=== PATIENT | male | born 1980 | race Caucasian/White ===

== ENCOUNTER 2017-12-27 11:54 | Emergency (ER) | payer SELFPAY ==
[2017-12-27] MEDS ORDERED: TETANUS & DIPHTHERIA TOX,ADULT 0.5 ML VIAL ONE (12:32)
[2017-12-27] MEDS ORDERED: LIDOCAINE 1% MPF 5 ML VIAL ONE (12:32)
--- NOTE | 2017-12-27 13:56 | RAD REPORT ---
EXAM DESCRIPTION: RAD -Hand Left 3 View - 12/27/2017 1:23 pm CLINICAL HISTORY: Left hand pain status post injury FINDINGS: No fracture or dislocation is seen. A radiopaque foreign body is not seen
--- NOTE | 2017-12-27 15:14 | EDPHYS ---
Physician Documentation [facility] Name: George Morales Age: 37 yrs Sex: Male : 1980 Arrival Date: 12/27/2017 Time: 11:59 Bed 16 Private MD: None, None ED Physician Micheal Cristobal HPI: 12/27 13:00 This 37 yrs old Male presents to ER via Ambulatory with complaints of Finger pm1 Laceration. 13:00 The patient or guardian reports a laceration. pm1 13:00 The complaints affect the lateral aspect of distal phalanx of left index finger. pm1 Context: The problem was sustained at home, resulted from cut with knife. Onset: The symptoms/episode began/occurred just prior to arrival. Modifying factors: The symptoms are alleviated by pressure to area, the symptoms are aggravated by nothing. Associated signs and symptoms: Pertinent positives: numbness distally, Pertinent negatives: cyanosis distally, decreased sensation distally. Severity of symptoms: in the emergency department the symptoms are unchanged. The patient has not experienced similar symptoms in the past. The patient has not recently seen a physician. Patient was cutting with a knife and got distracted, resulting in laceration to left index finger. Historical: - Allergies: 12:07 No Known Allergies; aj - Home Meds: 12:07 None [Active]; aj - PMHx: 12:07 None; aj - PSHx: 12:07 Left Leg; Neck; Back; aj - Immunization history:: Last tetanus immunization: < 10 years ago. - Social history:: Smoking status: Patient uses tobacco products. - Ebola Screening: : Patient negative for fever greater than or equal to 101.5 degrees Fahrenheit, and additional compatible Ebola Virus Disease symptoms Patient denies exposure to infectious person Patient denies travel to an Ebola-affected area in the 21 days before illness onset No symptoms or risks identified at this time. ROS: 13:00 Constitutional: Negative for fever, chills, and weight loss, Eyes: Negative for injury, pm1 pain, redness, and discharge, ENT: Negative for injury, pain, and discharge, Neck: Negative for injury, pain, and swelling, Cardiovascular: Negative for chest pain, palpitations, and edema, Respiratory: Negative for shortness of breath, cough, wheezing, and pleuritic chest pain, Abdomen/GI: Negative for abdominal pain, nausea, vomiting, diarrhea, and constipation, Back: Negative for injury and pain. 13:00 Neuro: Negative for headache, weakness, numbness, tingling, and seizure. 13:00 MS/extremity: Positive for laceration, of the lateral aspect of distal phalanx of left index finger, Negative for decreased range of motion, deformity. 13:00 Skin: Positive for laceration(s), of the lateral aspect of distal phalanx of left index finger. Exam: 13:00 Constitutional: This is a well developed, well nourished patient who is awake, alert, pm1 and in no acute distress. Head/Face: Normocephalic, atraumatic. Chest/axilla: Normal chest wall appearance and motion. Nontender with no deformity. No lesions are appreciated. Cardiovascular: Regular rate and rhythm with a normal S1 and S2. No gallops, murmurs, or rubs. Normal PMI, no JVD. No pulse deficits. Respiratory: Lungs have equal breath sounds bilaterally, clear to auscultation and percussion. No rales, rhonchi or wheezes noted. No increased work of breathing, no retractions or nasal flaring. Abdomen/GI: Soft, non-tender, with normal bowel sounds. No distension or tympany. No guarding or rebound. No evidence of tenderness throughout. Back: No spinal tenderness. No costovertebral tenderness. Full range of motion. 13:00 MS/ Extremity: Pulses equal, no cyanosis. Neurovascular intact. Full, normal range of motion. 13:00 Skin: Appearance: normal except for affected area, injury, laceration(s), the wound is approximately 1.5 cm(s), with a depth of 0.5 cm(s), of the lateral aspect of distal phalanx of left index finger. 13:00 Neuro: Orientation: is normal, Motor: is normal, moves all fours, Gait: is steady, at a normal pace, without difficulty. Vital Signs: 12:07 BP 141 / 93; Pulse 76; Resp 18; Temp 97.8; Pulse Ox 97% on R/A; Weight 111.58 kg; aj Height 6 ft. 2 in. (187.96 cm); 14:35 BP 138 / 88; Pulse 62; Resp 15; Pulse Ox 99% on R/A; Pain 08/28; ch 12:07 Body Mass Index 31.58 (111.58 kg, 187.96 cm) aj Laceration: 15:00 Wound Repair of 1.5cm ( 0.6in ) subcutaneous laceration to lateral aspect of distal pm1 phalanx of left index finger. Irregularly shaped.. Distal neuro/vascular/tendon intact. Anesthesia: Digital block administered with 3 mls of 1% lidocaine. Wound prep: Extensive cleansing with hibiclenz by me, Wound irrigation with saline by me, Wound explored extensively, Copious irrigation. Skin closed with 5 5-0 Prolene using simple sutures and sterile technique. Dressed with Neosporin, 4x4's. Patient tolerated well. MDM: 12:10 Patient medically screened. pm1 15:11 Data reviewed: vital signs. Data interpreted: Pulse oximetry: on room air is 99 %. pm1 Interpretation: normal. Counseling: I had a detailed discussion with the patient and/or guardian regarding: the historical points, exam findings, and any diagnostic results supporting the discharge/admit diagnosis, radiology results, the need for outpatient follow up, to return to the emergency department if symptoms worsen or persist or if there are any questions or concerns that arise at home. 12/27 12:16 Order name: Hand Left 3 View XRAY; Complete Time: 14:00 pm1 12/27 12:16 Order name: Prolene, Sutures; Complete Time: 12:34 pm1 12/27 12:16 Order name: Gloves, Sterile; Complete Time: 12:34 pm1 12/27 12:16 Order name: Setup Suture Tray; Complete Time: 12:34 pm1 Administered Medications: 12:34 Drug: Tetanus-Diphtheria Toxoid Adult 0.5 ml {Production Analyst: [employer]. Exp: 01/08/2020. Lot #: [id number]. } Route: IM; Site: left deltoid; 14:36 Follow up: Response: No adverse reaction 12:34 Drug: Lidocaine (1 %) 5 ml Volume: 5 ml; Route: Infiltration; Disposition: 16:17 Co-signature as Attending Physician, Micheal Cristobal MD. rn Disposition: 12/27/17 15:13 Discharged to Home. Impression: Laceration without foreign body of left index finger without damage to nail. - Condition is Stable. - Discharge Instructions: Laceration Care, Adult, [id number]. - Prescriptions for Keflex 500 mg Oral Capsule - take 1 capsule by ORAL route every 12 hours for 10 days; 20 capsule. Tramadol 50 mg Oral Tablet - take 1 tablet by ORAL route every 8 hours as needed; 12 tablet. - Medication Reconciliation Form, Thank You Letter, Antibiotic Education, Prescription Opioid Use form. - Follow up: Emergency Department; When: As needed; Reason: Worsening of condition. Follow up: Ryan Meier MD; When: 10 - 14 days; Reason: Recheck today's complaints, Continuance of care, Staple/Suture removal, Re-evaluation by your physician. Follow up: Private Physician; When: 10 - 14 days; Reason: Recheck today's complaints, Continuance of care, Staple/Suture removal, Re-evaluation by your physician. - Problem is new. - Symptoms have improved. Signatures: Dispatcher [employer] EDMS Fay Osborne RN RN ch Myers, Amanda, RN RN aj Nieto, Roman, MD MD rn Marinas, Patrick, NATURAL GAS FIELD PROCESSING SUPERVISOR NATURAL GAS FIELD PROCESSING SUPERVISOR pm1 Corrections: (The following items were deleted from the chart) 15:24 15:13 12/27/2017 15:13 Discharged to Home. Impression: Laceration without foreign body ch of left index finger without damage to nail. Condition is Stable. Forms are Medication Reconciliation Form, Thank You Letter, Antibiotic Education, Prescription Opioid Use. Follow up: Emergency Department; When: As needed; Reason: Worsening of condition. Follow up: Ryan Meier; When: 10 - 14 days; Reason: Recheck today's complaints, Continuance of care, Staple/Suture removal, Re-evaluation by your physician. Follow up: Private Physician; When: 10 - 14 days; Reason: Recheck today's complaints, Continuance of care, Staple/Suture removal, Re-evaluation by your physician. Problem is new. Symptoms have improved. pm1
--- NOTE | 2017-12-27 15:14 | ER ---
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 aj Transition of care: patient was not received from another setting of care. Onset of symptoms was December 27, 2017. Risk Assessment: Do you want to hurt yourself or someone else? Patient reports no desire to harm self or others. Initial Sepsis Screen: Does the patient meet any 2 criteria? No. Patient's initial sepsis screen is negative. Does the patient have a suspected source of infection? No. Patient's initial sepsis screen is negative. Care prior to arrival: None. 12:06 Method Of Arrival: Ambulatory aj 12:06 Acuity: MARGARITA 4 aj Triage Assessment: 12:07 General: Appears in no apparent distress. comfortable, Behavior is calm, cooperative, aj appropriate for age. Pain: Complains of pain in dorsal aspect of distal phalanx of left index finger and left index fingernail. Neuro: Level of Consciousness is awake, alert, obeys commands, Oriented to person, place, time, situation, Appropriate for age. Respiratory: Airway is patent Respiratory effort is even, unlabored, Respiratory pattern is regular, symmetrical. Derm: Skin is intact, is healthy with good turgor, Skin is pink, warm \T\ dry. normal. Injury Description: Laceration sustained to dorsal aspect of distal phalanx of left index finger is clean, 2.6 to 7.5 cm long, was sustained less than 30 minutes ago. Historical: - Allergies: 12:07 No Known Allergies; aj - Home Meds: 12:07 None [Active]; aj - PMHx: 12:07 None; aj - PSHx: 12:07 Left Leg; Neck; Back; aj - Immunization history:: Last tetanus immunization: < 10 years ago. - Social history:: Smoking status: Patient uses tobacco products. - Ebola Screening: : Patient negative for fever greater than or equal to 101.5 degrees Fahrenheit, and additional compatible Ebola Virus Disease symptoms Patient denies exposure to infectious person Patient denies travel to an Ebola-affected area in the 21 days before illness onset No symptoms or risks identified at this time. Screenin:23 Abuse screen: Denies threats or abuse. Denies injuries from another. Nutritional ch screening: No deficits noted. Tuberculosis screening: No symptoms or risk factors identified. Fall Risk None identified. Assessment: 12:23 General: Appears in no apparent distress. comfortable, Behavior is calm, cooperative, ch appropriate for age. Pain: Complains of pain in dorsal aspect of distal phalanx of left index finger Pain currently is 8 out of 10 on a pain scale. Pain began suddenly. Neuro: No deficits noted. Respiratory: No deficits noted. Derm: Skin is pink, warm \T\ dry. 12:23 Musculoskeletal: No signs and/or symptoms reported regarding the musculoskeletal ch system. Injury Description: Laceration sustained to left hand is clean, 0.5 to 2.5 cm long, not bleeding, no active bleeding noted at this time. 13:45 Reassessment: Patient appears in no apparent distress at this time. Patient and/or family updated on plan of care and expected duration. Pain level reassessed. Patient is alert, oriented x 3, equal unlabored respirations, skin warm/dry/pink. Patient states feeling better. Patient states symptoms have improved. 13:50 Reassessment: Patient appears in no apparent distress at this time. ch 14:35 Reassessment: Patient appears in no apparent distress at this time. No changes from previously documented assessment. Patient and/or family updated on plan of care and expected duration. Pain level reassessed. Patient is alert, oriented x 3, equal unlabored respirations, skin warm/dry/pink. awaiting provider to suture pt. no s/s of distress. pt verb understanding. Vital Signs: 12:07 BP 141 / 93; Pulse 76; Resp 18; Temp 97.8; Pulse Ox 97% on R/A; Weight 111.58 kg; aj Height 6 ft. 2 in. (187.96 cm); 14:35 BP 138 / 88; Pulse 62; Resp 15; Pulse Ox 99% on R/A; Pain 4/10; ch 12:07 Body Mass Index 31.58 (111.58 kg, 187.96 cm) ED Course: 11:59 Patient arrived in ED. mr 11:59 None, None is Private Physician. mr 12:07 Triage completed. aj 12:07 Arm band placed on left wrist. Patient placed in an exam room. aj 12:09 Leandro Davis NP is PHCP. pm1 12:09 Micheal Cristobal MD is Attending Physician. pm1 12:23 Fay Osborne, JAYANT is Primary Nurse. ch 12:23 No apparent distress. Resting quietly. ch 12:23 Patient has correct armband on for positive identification. Bed in low position. Call light in reach. 13:24 Hand Left 3 View XRAY In Process Unspecified. EDMS 14:30 Assist provider with laceration repair on dorsal aspect of distal phalanx of left index ch finger that was between 2.6 to 7.5 cm using sutures. Set up tray. Performed by Leandro Davis NP Dressed with band aid, Patient tolerated well. 14:30 Patient did not have IV access during this emergency room visit. 15:12 Ryan Meier MD is Referral Physician. pm1 Administered Medications: 12:34 Drug: Tetanus-Diphtheria Toxoid Adult 0.5 ml {Cheese Tester: [id number]. Exp: 01/08/2020. Lot #: [id number]. } Route: IM; Site: left deltoid; 14:36 Follow up: Response: No adverse reaction 12:34 Drug: Lidocaine (1 %) 5 ml Volume: 5 ml; Route: Infiltration; Outcome: 15:13 Discharge ordered by MD. pm1 15:24 Patient left the ED. 15:35 Discharged to home ambulatory, with family. 15:35 Condition: improved 15:35 Discharge instructions given to patient, family, Instructed on discharge instructions, follow up and referral plans. medication usage, wound care, Demonstrated understanding of instructions, follow-up care, medications, wound care, Prescriptions given X 2. Signatures: Dispatcher [employer] EDSC Fay Osborne RN RN ch Myers, Amanda, RN RN aj Rivera, Maria mr SusanLeandro NP [employer]ENOGR[employer]HER [employer] pm1
== END 2017-12-27 15:24 | disposition home or self-care (01) ==
LOC: ER 11:54
PROC: 0JQK0ZZ Repair Left Hand Subcutaneous Tissue and Fascia, Open Approach (ICD-10-PCS; principal; 2017-12-27)
DX: S61.211A Laceration without foreign body of left index finger without damage to nail, initial encounter (principal); W26.0XXA Contact with knife, initial encounter; Y93.9 Activity, unspecified; Y92.009 Unspecified place in unspecified non-institutional (private) residence as the place of occurrence of the external cause; Z72.0 Tobacco use
CPT/HCPCS: 90714; 99284

== ENCOUNTER 2019-08-01 16:49 | Emergency (ER) | payer SELFPAY ==
[2019-08-01] MEDS ORDERED: IPRATROPIUM BROM 0.5MG/2.5ML ONE (17:16)
[2019-08-01] MEDS ORDERED: ALBUTEROL 2.5 MG/3 ML NEB SOL ONE (17:16)
--- NOTE | 2019-08-01 17:39 | RAD REPORT ---
EXAM DESCRIPTION: Artur Meza And Maximiliano (2 Views)08/01/2019 5:25 pm CLINICAL HISTORY: Cough COMPARISON: None FINDINGS: The lungs appear clear of acute infiltrate. The heart is normal size IMPRESSION: No acute abnormalities displayed
--- NOTE | 2019-08-01 17:43 | EDPHYS ---
Physician Documentation [facility] Name: George Morales Age: 39 yrs Sex: Male : 1980 Arrival Date: 08/01/2019 Time: 16:52 Bed 28 Private MD: ED Physician Heraclio Raymundo HPI: 07/31 17:06 This 39 yrs old Male presents to ER via Ambulatory with complaints of Flu la1 Symptoms. 17:06 The patient or guardian reports cough, that is intermittent, described as moderate. la1 Onset: The symptoms/episode began/occurred 3 week(s) ago. Severity of symptoms: At their worst the symptoms were mild. Modifying factors: The symptoms are alleviated by nothing, the symptoms are aggravated by nothing. Associated signs and symptoms: Pertinent negatives: fever. The patient has not experienced similar symptoms in the past. Historical: - Allergies: 17:04 No Known Allergies; aj1 - Home Meds: 17:04 None [Active]; aj1 - PMHx: 17:04 None; aj1 - Immunization history:: Flu vaccine is not up to date. - Social history:: Smoking status: Patient/guardian denies using tobacco. ROS: 17:07 Constitutional: Negative for fever, chills, and weight loss, Eyes: Negative for injury, la1 pain, redness, and discharge, ENT: Negative for injury, pain, and discharge, Cardiovascular: Negative for chest pain, palpitations, and edema. 17:07 Abdomen/GI: Negative for abdominal pain, nausea, vomiting, diarrhea, and constipation, Back: Negative for injury and pain, MS/Extremity: Negative for injury and deformity, Skin: Negative for injury, rash, and discoloration, Neuro: Negative for headache, weakness, numbness, tingling, and seizure. 17:07 Respiratory: Positive for cough. Exam: 17:07 Constitutional: This is a well developed, well nourished patient who is awake, alert, la1 and in no acute distress. Eyes: Pupils equal round and reactive to light, extra-ocular motions intact. ENT: Mucous membranes moist. Neck: Trachea midline,Supple, full range of motion without nuchal rigidity, or vertebral point tenderness. No Meningismus. Chest/axilla: Normal chest wall appearance and motion. Nontender with no deformity. No lesions are appreciated. Cardiovascular: Regular rate and rhythm with a normal S1 and S2. 17:07 Back: No spinal tenderness. No costovertebral tenderness. Full range of motion. 17:07 Respiratory: the patient does not display signs of respiratory distress, Respirations: normal, Breath sounds: bronchial sounds, that are mild, are scattered. Vital Signs: 17:01 BP 141 / 94; Pulse 81; Resp 18; Temp 98.1; Pulse Ox 98% on R/A; Weight 104.33 kg (R); aj1 Height 6 ft. 2 in. (187.96 cm); 17:01 Body Mass Index 29.53 (104.33 kg, 187.96 cm) aj1 MDM: 17:06 Patient medically screened. la1 17:43 Data reviewed: vital signs, nurses notes, lab test result(s), radiologic studies, and la1 as a result, I will discharge patient. Data interpreted: Pulse oximetry: on room air is 98 %. Interpretation: normal. Counseling: I had a detailed discussion with the patient and/or guardian regarding: the historical points, exam findings, and any diagnostic results supporting the discharge/admit diagnosis, radiology results, the need for outpatient follow up, a family practitioner, to return to the emergency department if symptoms worsen or persist or if there are any questions or concerns that arise at home. Special discussion: Based on the patient's history, exam, and Dx evaluation, there is no indication for emergent intervention or inpatient Tx. It is understood by the patient/guardian that if the Sx's persist or worsen they need to return immediately for re-evaluation. 07/31 17:04 Order name: Chest Pa And Lat (2 Views) XRAY; Complete Time: 17:42 la1 Administered Medications: 17:38 Drug: Albuterol - atroVENT (3:1) (2.5 mg - 0.5 mg) 3 ml Route: Nebulizer; aj1 Disposition: 19:43 Co-signature as Attending Physician, Heraclio Raymundo MD I agree with the assessment and kdr plan of care. Disposition: 08/01/19 17:42 Discharged to Home. Impression: Acute bronchitis. - Condition is Stable. - Discharge Instructions: Acute Bronchitis, Adult. - Prescriptions for Tessalon Perles 100 mg Oral Capsule - take 1 capsule by ORAL route every 8 hours As needed; 15 capsule. Medrol (Ronaldo) 4 mg Oral Tablets, Dose Pack - take 1 tablet by ORAL route as directed - follow package instructions; 1 packet. Albuterol Sulfate 90 mcg/actuation - inhale 1-2 puff by INHALATION route every 4-6 hours; 1 Inhaler. - Medication Reconciliation Form, Thank You Letter form. - Follow up: Private Physician; When: 2 - 3 days; Reason: Recheck today's complaints, Continuance of care, Re-evaluation by your physician. - Problem is new. - Symptoms have improved. Signatures: Dispatcher [employer] EDElsa Monae, RN RN aj1 Candace Nj RN RN dm5 Heraclio Raymundo MD MD kdr Austyn Mendoza, FUNERAL DIRECTOR/EMBALMER/OWNER-C FUNERAL DIRECTOR/EMBALMER/OWNER-Cla1 Corrections: (The following items were deleted from the chart) 18:27 17:42 08/01/2019 17:42 Discharged to Home. Impression: Acute bronchitis. Condition is dm5 Stable. Forms are Medication Reconciliation Form, Thank You Letter, Antibiotic Education, Prescription Opioid Use. Follow up: Private Physician; When: 2 - 3 days; Reason: Recheck today's complaints, Continuance of care, Re-evaluation by your physician. Problem is new. Symptoms have improved. la1
--- NOTE | 2019-08-01 17:43 | ER ---
Nurse's Notes [facility] Name: George Morales Age: 39 yrs Sex: Male : 1980 Arrival Date: 08/01/2019 Time: 16:52 Bed 28 Private MD: Diagnosis: Acute bronchitis Presentation: 07/31 17:01 Chief complaint: Patient states: Cough and congestion for the past 3 weeks. Denies aj1 fever. Coronavirus screen: The patient has NOT traveled to a country currently being monitored by the CDC within the last 14 days. Ebola Screen: Patient denies travel to an Ebola-affected area in the 21 days before illness onset. 17:01 Method Of Arrival: Ambulatory aj1 17:01 Initial Sepsis Screen: Does the patient meet any 2 criteria? No. Patient's initial aj1 sepsis screen is negative. Does the patient have a suspected source of infection? Yes: Productive cough/pneumonia. Risk Assessment: Do you want to hurt yourself or someone else? Patient reports no desire to harm self or others. 17:01 Acuity: MARGARITA 4 aj1 Triage Assessment: 17:04 General: Appears in no apparent distress. comfortable, Behavior is calm, cooperative, aj1 appropriate for age. Pain: Denies pain. Historical: - Allergies: 17:04 No Known Allergies; aj1 - Home Meds: 17:04 None [Active]; aj1 - PMHx: 17:04 None; aj1 - Immunization history:: Flu vaccine is not up to date. - Social history:: Smoking status: Patient/guardian denies using tobacco. Vital Signs: 17:01 BP 141 / 94; Pulse 81; Resp 18; Temp 98.1; Pulse Ox 98% on R/A; Weight 104.33 kg (R); aj1 Height 6 ft. 2 in. (187.96 cm); 17:01 Body Mass Index 29.53 (104.33 kg, 187.96 cm) aj1 ED Course: 16:52 Patient arrived in ED. mr 16:57 Austyn Mendoza FNP-C [facility]. la1 16:57 Heraclio Raymundo MD is Attending Physician. la1 17:01 Elsa Mast RN is Primary Nurse. aj1 17:03 Triage completed. aj1 17:04 Arm band placed on. aj1 17:25 Chest Pa And Lat (2 Views) XRAY In Process Unspecified. EDMS Administered Medications: 17:38 Drug: Albuterol - atroVENT (3:1) (2.5 mg - 0.5 mg) 3 ml Route: Nebulizer; aj1 Outcome: 17:42 Discharge ordered by . la1 18:27 Patient left the ED. dm5 Signatures: Dispatcher [employer] EDMS Elsa Mast RN RN aj1 Candace Nj RN RN dm5 Ana Herron mr Reji, Austyn, VENTILATION MECHANIC-C VENTILATION MECHANIC-Cla1
[2019-08-01 18:33] VITALS: BP 141/94; TEMP 98.1; O2SAT 98
== END 2019-08-01 18:27 | disposition home or self-care (01) ==
LOC: ER 16:49
DX: J20.9 Acute bronchitis, unspecified (principal)
CPT/HCPCS: 71046; 94640; 99284

== ENCOUNTER 2021-01-04 10:22 | Emergency (ER) | payer SELFPAY ==
[2021-01-04] MEDS ORDERED: LIDOCAINE 1% 20 ML MDV ONE (13:14)
[2021-01-04] MEDS ORDERED: HYDROCODONE/APAP 10/325 TAB ONE (13:14)
--- NOTE | 2021-01-04 13:17 | EDPHYS ---
Physician Documentation [facility] Name: George Morales Jr Age: 40 yrs Sex: Male : 1980 Arrival Date: 01/04/2021 Time: 10:30 Bed Treatment Private MD: ED Physician Charlotte Arriaza HPI: 01/04 13:13 This 40 yrs old Male presents to ER via Ambulatory with complaints of Abscess.jr8 13:13 The patient presents with an abscess of the right leg. Description: The affected area jr8 is moderate sized, localized, draining, erythematous, swollen, tense. Onset: The symptoms/episode began/occurred gradually. Possible cause(s): unknown. Associated signs and symptoms: The patient has no apparent associated signs or symptoms. Modifying factors: the symptoms are alleviated by nothing, the symptoms are aggravated by walking, pressure, squeezing the lesion and expressing the contents, touching. Severity of symptoms: At their worst the symptoms were moderate, in the emergency department the symptoms are unchanged. The patient has not experienced similar symptoms in the past. The patient has not recently seen a physician. Historical: - Allergies: 11:14 No Known Allergies; jl7 - Home Meds: 11:14 None [Active]; jl7 - PMHx: 11:14 None; jl7 - Immunization history:: Client reports receiving the 1st dose of the Covid vaccine. - Social history:: Smoking status: Patient denies any tobacco usage or history of. ROS: 13:13 Eyes: Negative for injury, pain, redness, and discharge, ENT: Negative for injury, jr8 pain, and discharge, Neck: Negative for injury, pain, and swelling, Cardiovascular: Negative for chest pain, palpitations, and edema, Respiratory: Negative for shortness of breath, cough, wheezing, and pleuritic chest pain, Abdomen/GI: Negative for abdominal pain, nausea, vomiting, diarrhea, and constipation, Back: Negative for injury and pain, MS/Extremity: Negative for injury and deformity, Neuro: Negative for headache, weakness, numbness, tingling, and seizure. 13:13 Skin: Positive for abscess, of the right leg. Exam: 13:13 Constitutional: This is a well developed, well nourished patient who is awake, alert, jr8 and in no acute distress. Cardiovascular: Regular rate and rhythm with a normal S1 and S2. No gallops, murmurs, or rubs. Normal PMI, no JVD. No pulse deficits. Respiratory: Lungs have equal breath sounds bilaterally, clear to auscultation and percussion. No rales, rhonchi or wheezes noted. No increased work of breathing, no retractions or nasal flaring. MS/ Extremity: Pulses equal, no cyanosis. Neurovascular intact. Full, normal range of motion. Neuro: Awake and alert, GCS 15, oriented to person, place, time, and situation. Cranial nerves II-XII grossly intact. Motor strength 5/5 in all extremities. Sensory grossly intact. Cerebellar exam normal. Normal gait. 13:13 Skin: Has approximately 2.5 cm abscess with surrounding induration erythema noted. Abscess is actively draining at this time.. Vital Signs: 11:12 BP 147 / 85; Pulse 76; Resp 17; Temp 98.2; Pulse Ox 100% ; Weight 102.06 kg; Height 6 jl7 ft. 2 in. (187.96 cm); Pain 10/10; 11:12 Body Mass Index 28.89 (102.06 kg, 187.96 cm) jl7 Procedures: 13:13 I \T\ D: Incision and drainage was performed for an abscess of the right Lateral calf jr8 Prepped with Betadine, Anesthetized with 10 ml's 1% Lidocaine. Incised with #11 blade. Drained moderate amount purulent fluid. bloody fluid. Loculations removed. Abscess cavity explored. Packed with iodoform gauze, the patient tolerated the procedure well. MDM: 11:43 Patient medically screened. [facility] 13:13 Data reviewed: vital signs, nurses notes, and as a result, I will discharge patient. jr8 Data interpreted: Pulse oximetry: on room air is 100 %. Interpretation: normal. Counseling: I had a detailed discussion with the patient and/or guardian regarding: the historical points, exam findings, and any diagnostic results supporting the discharge/admit diagnosis, lab results, the need for outpatient follow up, a family practitioner, to return to the emergency department if symptoms worsen or persist or if there are any questions or concerns that arise at home. ED course: We will put patient on and if it were to get worse in between now and then to come back for reevaluation. Patient good with this plan at this time.. 01/04 12:40 Order name: I\T\D Setup; Complete Time: 13:37 jr8 Administered Medications: 12:55 Drug: Lidocaine (1 %) 1 vials Volume: 20 ml; Route: Infiltration; iw 13:01 Drug: [place] (HYDROcodone-acetaminophen) 10 mg-325 mg 1 tabs Route: PO; iw Disposition: 18:56 Co-signature as Attending Physician, Charlotte Arriaza I agree with the assessment and plan sp3 of care. Disposition Summary: 01/04/21 13:16 Discharge Ordered Location: Home jr8 Problem: new jr8 Symptoms: have improved jr8 Condition: Stable jr8 Diagnosis - Cutaneous abscess of right lower limb jr8 Followup: jr8 - With: Private Physician - When: 48 Hours - Reason: Wound Recheck, Recheck today's complaints, Continuance of care, Re-evaluation by your physician Discharge Instructions: - Discharge Summary Sheet jr8 - Skin Abscess jr8 - Incision and Drainage jr8 Forms: - Medication Reconciliation Form jr8 - Thank You Letter jr8 - Antibiotic Education jr8 - Prescription Opioid Use jr8 Prescriptions: - Tramadol 50 mg Oral Tablet - take 1 tablet by ORAL route every 8 hours as needed; 12 tablet; Refills: 0, jr8 Product Selection Permitted - Bactrim DS 800-160 mg Oral Tablet - take 1 tablet by ORAL route every 12 hours for 10 days; 20 tablet; Refills: 0, jr8 Product Selection Permitted Signatures: Aliya Vera RN RN iw Roszak, Josh, PA PA jr8 Chris Johnson RN RN jl7 Charlotte Arriaza sp3
--- NOTE | 2021-01-04 13:17 | ER ---
Nurse's Notes [facility] Name: George Morales Jr Age: 40 yrs Sex: Male : 1980 Arrival Date: 01/04/2021 Time: 10:30 Bed Treatment Private MD: Diagnosis: Cutaneous abscess of right lower limb Presentation: 01/04 11:12 Chief complaint: Patient states: Spider bite to right calf 4 days ago, started taking jl7 amoxicillin, went to [facility] and they gave me a prescription but I didn't get it filled since I'm already taking amoxicillin. Coronavirus screen: Client denies travel out of the [place] in the last 14 days. At this time, the client does not indicate any symptoms associated with coronavirus-19. Ebola Screen: No symptoms or risks identified at this time. Initial Sepsis Screen: Does the patient meet any 2 criteria? No. Patient's initial sepsis screen is negative. Does the patient have a suspected source of infection? No. Patient's initial sepsis screen is negative. Risk Assessment: Do you want to hurt yourself or someone else? Patient reports no desire to harm self or others. Onset of symptoms was December 31, 2020. 11:12 Method Of Arrival: Ambulatory [facility] 11:12 Acuity: MARGARITA 4 jl7 Historical: - Allergies: 11:14 No Known Allergies; jl7 - Home Meds: 11:14 None [Active]; jl7 - PMHx: 11:14 None; jl7 - Immunization history:: Client reports receiving the 1st dose of the Covid vaccine. - Social history:: Smoking status: Patient denies any tobacco usage or history of. Assessment: 11:41 Reassessment: SERA Perez assessing pt. [facility] Vital Signs: 11:12 BP 147 / 85; Pulse 76; Resp 17; Temp 98.2; Pulse Ox 100% ; Weight 102.06 kg; Height 6 jl7 ft. 2 in. (187.96 cm); Pain 10; 11:12 Body Mass Index 28.89 (102.06 kg, 187.96 cm) jl7 ED Course: 10:30 Patient arrived in ED. mr 11:14 Triage completed. jl7 11:14 Arm band placed on right wrist. jl7 11:40 Chris Garsia PA is PHCP. jl7 11:44 Johnson, Jahala, RN is Primary Nurse. jl7 13:13 Charlotte Arriaza is Attending Physician. jr8 Administered Medications: 12:55 Drug: Lidocaine (1 %) 1 vials Volume: 20 ml; Route: Infiltration; iw 13:01 Drug: Ennice (HYDROcodone-acetaminophen) 10 mg-325 mg 1 tabs Route: PO; iw Outcome: 13:16 Discharge ordered by . gwyn 13:38 Patient left the ED. iw Signatures: Ana Herron Irene, RN RN iw Chris Garsia PA PA jr8 Chris Johnson, JAYANT RN jl7
[2021-01-04 13:41] VITALS: BP 147/85; TEMP 98.2; O2SAT 100
== END 2021-01-04 13:38 | disposition home or self-care (01) ==
LOC: ER 10:22
PROC: 0J9N0ZZ Drainage of Right Lower Leg Subcutaneous Tissue and Fascia, Open Approach (ICD-10-PCS; principal; 2021-01-04)
DX: L02.415 Cutaneous abscess of right lower limb (principal)
CPT/HCPCS: 99282

== ENCOUNTER 2021-01-06 07:54 | Emergency (ER) | payer SELFPAY ==
--- OUTSIDE RECORDS SUMMARY | 2021-01-06 07:56 | XMS REPORT | Continuity of Care Document ---
:1980 Author Organization [facility] t Address [address] [place] [address] Care Team Providers Name Role Phone Darrin Hillman Attending Clinician Doctor Unassigned, Name Attending Clinician Unavailable Singer KASPER Attending Clinician Problems This patient has no known problems. Allergies, Adverse Reactions, Alerts This patient has no known allergies or adverse reactions. Medications This patient has no known medications. Procedures This patient has no known procedures. Encounters Start End Encounter Admission Attending Care Care Encounter Source Date/Time Date/Time Type Type Clinicians Facility Department ID 2020-12-30 2020-12-30 Emergency Elizabeth [facility] [id number] 21:37:00 23:13:00 Lillie Goyal [id number] [place] [id number] [place] [address] [id number] 2020-12-30 2020-12-30 Orders Doctor COOPER [id number] 00:00:00 00:00:00 Only Unassigned, LATANYA [id number] [place] [facility] [id number] 2020-04-21 2020-04-21 Emergency Singer [place] [id number] 10:24:00 11:44:00 Tyree Goyal [id number] [place] [id number] [place] [address] [id number] Results This patient has no known results.
--- NOTE | 2021-01-06 09:16 | ER ---
Nurse's Notes [facility] Name: George Morales Jr Age: 40 yrs Sex: Male : 1980 Arrival Date: 01/06/2021 Time: 07:57 Bed Waiting Private MD: Diagnosis: Right Lower Leg Abscess with surrounding cellulitis Presentation: 01/06 08:52 Chief complaint: Patient states: Packing Removal. Coronavirus screen: Client denies da3 travel out of the [place] in the last 14 days. At this time, the client does not indicate any symptoms associated with coronavirus-19. 08:52 Method Of Arrival: Ambulatory da3 08:57 Risk Assessment: Do you want to hurt yourself or someone else? Patient reports no da3 desire to harm self or others. 08:57 Acuity: MARGARITA 4 da3 Triage Assessment: 08:57 General: Appears in no apparent distress. uncomfortable. da3 Historical: - Allergies: 08:54 No Known Allergies; da3 - PMHx: 08:54 None; da3 - Immunization history:: Client reports receiving the 1st dose of the Covid vaccine. Vital Signs: 08:53 BP 144 / 82; Pulse 78; Resp 18; da3 08:53 Temp 97.0; Pulse Ox 97% on R/A; da3 ED Course: 07:57 Patient arrived in ED. ds1 08:57 Triage completed. da3 09:07 [facility] 09:07 Micheal Cristobal MD is Attending Physician. [facility] 09:14 Godfrey Darby MD is Referral Physician. [facility] Administered Medications: No medications were administered Outcome: 09:15 Discharge ordered by . [facility] 09:32 Patient left the ED. da3 Signatures: Clint Hernandez PA PA jmm Sanford, Demi ds1 Esteban Palmer, RN RN da3
--- NOTE | 2021-01-06 09:16 | EDPHYS ---
Physician Documentation [facility] Name: George Morales Jr Age: 40 yrs Sex: Male : 1980 Arrival Date: 01/06/2021 Time: 07:57 Bed Waiting Private MD: ED Physician Micheal Cristobal HPI: 01/06 09:09 This 40 yrs old Male presents to ER via Ambulatory with complaints of Packing jmm Removal. 09:09 Patient presents to ED for recheck of: abscess. The affected area is on the lateral jmm aspect of right calf. The patient has not experienced similar symptoms in the past. 80-year-old male with no chronic medical conditions and presents emerge department with complaints of swelling to the right lower limb. Patient had an incision and drainage 2 days ago. Patient denies that the symptoms have been worsening. Patient has been taking prescribed medication as directed. Denies fever.. Historical: - Allergies: 08:54 No Known Allergies; da3 - PMHx: 08:54 None; da3 - Immunization history:: Client reports receiving the 1st dose of the Covid vaccine. ROS: 09:09 Constitutional: Negative for fever, chills, and weight loss, Cardiovascular: Negative jmm for chest pain, palpitations, and edema, Respiratory: Negative for shortness of breath, cough, wheezing, and pleuritic chest pain. 09:09 Skin: Positive for erythema, swelling. 09:09 All other systems are negative. Exam: 09:09 Constitutional: This is a well developed, well nourished patient who is awake, alert, jmm and in no acute distress. Head/Face: atraumatic. Eyes: EOMI, no conjunctival erythema appreciated ENT: Moist Mucus Membranes Neck: Trachea midline, Supple Chest/axilla: Normal chest wall appearance and motion. Cardiovascular: Regular rate and rhythm. No edema appreciated Respiratory: Normal respirations, no respiratory distress appreciated Abdomen/GI: Non distended, soft Back: Normal ROM 09:09 Skin: abscess with surrounding erythema noted to the right lower leg. 09:09 Neuro: Orientation: is normal, Mentation: is normal, Memory: is normal. 09:09 Psych: Behavior/mood is pleasant, cooperative. Vital Signs: 08:53 BP 144 / 82; Pulse 78; Resp 18; da3 08:53 Temp 97.0; Pulse Ox 97% on R/A; da3 Procedures: 09:09 Packing from the right lower leg removed. Gauze packing was then inserted with Coban [facility] wrapping.. MDM: 09:09 Data reviewed: vital signs, nurses notes. Counseling: I had a detailed discussion with [facility] the patient and/or guardian regarding: the historical points, exam findings, and any diagnostic results supporting the discharge/admit diagnosis, the need for outpatient follow up, to return to the emergency department if symptoms worsen or persist or if there are any questions or concerns that arise at home. ED course: Patient is alert nontoxic in appearance in the ED. Patient afebrile upon triage. I will added an additional antibiotic. Patient given follow-up information for surgery/wound care. Patient otherwise advised to return to the ED if he notices any worsening change in his wound.. 09:15 Patient medically screened. [facility] Administered Medications: No medications were administered Disposition: 14:35 Co-signature as Attending Physician, Micheal Cristobal MD I agree with the assessment and rn plan of care. Attestation: The patient's history, exam findings, diagnostics, and a summary of any interventions or procedures was reviewed in detail with Clint ZAMORA. Disposition Summary: 01/06/21 09:15 Discharge Ordered Location: Home [facility] Condition: Stable [facility] Diagnosis - Right Lower Leg Abscess with surrounding cellulitis [facility] Followup: [facility] - With: Godfrey aDrby MD - When: 2 - 3 days - Reason: Recheck today's complaints, Continuance of care, Re-evaluation by your physician Discharge Instructions: - Discharge Summary Sheet [facility] - Skin Abscess [facility] - Incision and Drainage, Care After [facility] Forms: - Medication Reconciliation Form [facility] - Thank You Letter [facility] - Antibiotic Education [facility] - Prescription Opioid Use [facility] Prescriptions: - Doxycycline Hyclate 100 mg Oral Tablet - take 1 tablet by ORAL route every 12 hours; 20 tablet; Refills: 0, Product [facility] Selection Permitted Signatures: Clint Hernandez PA PA [facility] Micheal Cristobal MD MD rn Allan, David, RN RN da3
[2021-01-06 09:36] VITALS: BP 144/82; TEMP 97; O2SAT 97
== END 2021-01-06 09:32 | disposition home or self-care (01) ==
LOC: ER 07:54
DX: L03.115 Cellulitis of right lower limb (principal)
CPT/HCPCS: 99281

== ENCOUNTER 2021-11-13 17:47 | Emergency (ER) | payer SELFPAY ==
--- OUTSIDE RECORDS SUMMARY | 2021-11-13 17:50 | XMS REPORT | Continuity of Care Document ---
:1980 Author Organization [facility] t Address [address] [place] [address] Care Team Providers Name Role Phone PCP, DOES NOT HAVE A Primary Care Physician Unavailable Only, Adult Uc Test Attending Clinician Unavailable Sonia Rueda Attending Clinician Darrin Hillman Attending Clinician Doctor Unassigned, Name Attending Clinician Unavailable Singer KASPER Attending Clinician Problems Condition Condition Condition Status Onset Resolution Last Treating Co mments Source Name Details Category Date Date Treatment Clinician Date No known No known Disease Unive rs active active ity of problems problems [facility] Allergies, Adverse Reactions, Alerts Allergy Allergy Status Severity Reaction(s) Onset Inactive Treating Comm ents Source Name Type Date Date Clinician NO KNOWN Drug Active Univers ALLERGIE Class ity of S [facility] Social History Social Habit Start Date Stop Date Quantity Comments Source Sex Assigned At [birth year] [facility] 00:00:00 00:00:00 [facility] Smoking Status Start Date Stop Date Source Unknown if ever smoked [facility] Medications Ordered Filled Start Stop Current Ordering Indication Dosage Frequency Signature Comments Components Source Medication Medication Date Date Medication? Clinician (SIG) Name Name mupirocin 2 Yes [id number] Apply to Univers % ointment -12 area(s) 3 ity of 00:00: (three) [place] 00 times Medical daily. Branch multivitami 2019-05 Yes [id number] 1{capsu Take 1 Univers n capsule 2-02 le} capsule by ity of 00:00: mouth [place] 00 daily. Medical Branch calcium-mag 2019-05 Yes [id number] Take as Univers nesium-zinc 2-02 directed ity of [id number] 00:00: for daily [place] mg Tab 00 dose. [facility] Branch benzonatate 2019-05 Yes [id number] 100mg Take 1 Univers 100 mg 2-02 capsule by ity of capsule 00:00: mouth 3 [place] 00 (three) Medical times Branch daily as needed for Cough. chlorphenir 2019-05 Yes [id number] 4mg Take 1 Univers amine 4 mg 2-02 tablet by ity of tablet 00:00: mouth [place] 00 every 6 Medical (six) Branch hours as needed for Allergies or Runny nose. Procedures This patient has no known procedures. Encounters Start End Encounter Admission Attending Care Care Encounter Source Date/Time Date/Time Type Type Clinicians Facility Department ID 2021-05-20 2021-05-20 Laboratory Only, [facility] Adult Uc Test [facility] [id number] Univers 14:45:00 15:00:00 Only Davina Neri PROSPER [id number] ity of PEDIATRIC [id number] [facility] [id number] [address] 2021-05-20 2021-05-20 Outpatient [facility] [id number] Univers 13:45:00 13:45:00 [id number] ity of [facility] 2020-12-30 2020-12-30 Emergency [facility] [id number] 21:37:00 23:13:00 Lillie Goyal [id number] [place] [id number] [place] [id number] 2020-12-30 2020-12-30 Orders Doctor COOPER [id number] 00:00:00 00:00:00 Only LATANYA [place] [id number] [place] [facility] [id number] 2020-04-21 2020-04-21 Emergency [facility] [id number] 10:24:00 11:44:00 Tyree Goyal [id number] [place] [id number] [place] [id number] Results This patient has no known results.
--- NOTE | 2021-11-13 20:50 | RAD REPORT ---
EXAM DESCRIPTION: RAD - Foot Left 3 View - 11/13/2021 8:36 pm CLINICAL HISTORY: big toe injury COMPARISON: No comparisons FINDINGS: No fracture, dislocation or periosteal reaction. No acute or destructive bony process. In jury to the toenail of the first toe is evident. No air or foreign body in the soft tissues. IMPRESSION: No acute left foot bone or joint abnormality.
[2021-11-13] MEDS ORDERED: BUPIVACAINE 0.25% PF 10 ML VIAL ONE (21:14)
[2021-11-13] MEDS ORDERED: HYDROCODONE/APAP 7.5/325 MG TAB ONE (21:14)
[2021-11-13] MEDS ORDERED: LIDOCAINE 1% 20 ML MDV ONE (21:14)
--- NOTE | 2021-11-13 22:22 | ER ---
Nurse's Notes [facility] Name: George Morales Jr Age: 41 yrs Sex: Male : 1980 Arrival Date: 11/13/2021 Time: 17:50 Bed 28 Private MD: Diagnosis: Contusion of great toe with damage to nail-right great toe Historical: - Allergies: 11/13 22:51 No Known Allergies; bb - Immunization history:: Adult Immunizations unknown. - Social history:: Smoking status: unknown. Screenin:45 Abuse screen: Denies threats or abuse. Nutritional screening: No deficits noted. bb Tuberculosis screening: No symptoms or risk factors identified. Fall Risk None identified. Assessment: 20:45 General: Appears in no apparent distress. uncomfortable, Behavior is calm, cooperative. bb Pain: Complains of pain in right foot. Neuro: Level of Consciousness is awake, alert, obeys commands, Oriented to person, place, time, situation. Musculoskeletal: toe nail to right big toe lifted up and dislocated. 22:52 Reassessment: Patient is alert, oriented x 3, equal unlabored respirations, skin bb warm/dry/pink. bandage applied to right big toe pt verbalized understanding of and agrees to plan of care discharge instructions given pt ambulated with steady gait to exit accompanied by family. Vital Signs: 20:11 BP 150 / 74; Pulse 51; Resp 18; Temp 98.3; Pulse Ox 100% ; Weight 97.52 kg; Height 6 zm ft. 2 in. (187.96 cm); 22:55 BP 132 / 70; Pulse 66; Resp 16 S; Temp 99.2(O); Pulse Ox 97% on R/A; bb 20:11 Body Mass Index 27.60 (97.52 kg, 187.96 cm) ED Course: 17:50 Patient arrived in ED. bp1 19:35 Dwight Owens PA is PHCP. cp 19:35 Artemio Berman MD is Attending Physician. cp 19:52 Lakia Duron, JAYANT is Primary Nurse. bb 20:13 Patient has correct armband on for positive identification. Bed in low position. Call light in reach. Side rails up X 1. Adult w/ patient. Pulse ox on. NIBP on. 20:37 XRAY Foot LEFT 3 View In Process Unspecified. EDMS 22:20 Raffaele Ernandez DPM is Referral Physician. cp 22:53 Dressings: 4X4s X 1; right foot covered with coban. bb 22:55 No provider procedures requiring assistance completed. Patient did not have IV access bb during this emergency room visit. Administered Medications: 21:11 Drug: Hydrocodone-Acetaminophen (7.5 mg-325 mg) 1 tabs Route: PO; bb 22:53 Follow up: Response: No adverse reaction bb 22:25 Drug: Marcaine (bupivacaine) (0.5 %) 10 ml {Note: by Dwight ZAMORA to affected area.} bb Volume: 10 ml; Route: Infiltration; 22:54 Follow up: Response: No adverse reaction bb 22:25 Drug: Lidocaine (1 %) 10 ml {Note: by Dwight ZAMORA to affected area.} Volume: 20 ml; bb Route: Infiltration; :54 Follow up: Response: No adverse reaction bb Outcome: 22:22 Discharge ordered by MD. cp 22:55 Discharged to home ambulatory, with family. bb 22:55 Condition: stable 22:55 Discharge instructions given to patient, Instructed on discharge instructions, the need for admit, no driving heavy equipment, medication usage, wound care, Demonstrated understanding of instructions, follow-up care, medications, wound care, Prescriptions given X 3. 22:56 Patient left the ED. bb Signatures: Dispatcher [employer] EDMS Lakia Duron, JAYANT RN Dwight Corrigan PA PA cp [place], Brittany bp1 Martinez, Zaina zm
--- NOTE | 2021-11-13 22:23 | EDPHYS ---
Physician Documentation [facility] Name: George Morales Jr Age: 41 yrs Sex: Male : 1980 Arrival Date: 11/13/2021 Time: 17:50 Bed 28 Private MD: ED Physician Artemio Berman HPI: 11/13 20:15 This 41 yrs old Male presents to ER via Unassigned with complaints of Toe Injury. cp 20:15 The patient presents with an injury, pain, that is acute. The complaints affect the cp left great toe. 20:15 Context: Patient reports he was taking out trash and struck left great toe against cp trash can. Onset: The symptoms/episode began/occurred just prior to arrival. Associated signs and symptoms: The patient has no apparent associated signs or symptoms. Historical: - Allergies: 22:51 No Known Allergies; bb - Immunization history:: Adult Immunizations unknown. - Social history:: Smoking status: unknown. ROS: 20:20 MS/extremity: Positive for injury or acute deformity, pain, of the left great toe. cp 20:20 Constitutional: Negative for body aches, chills, fever. cp 20:20 Neck: Negative for pain with movement, pain at rest. 20:20 Cardiovascular: Negative for chest pain, palpitations. 20:20 Respiratory: Negative for cough, shortness of breath, wheezing. 20:20 Back: Negative for pain at rest, pain with movement. 20:20 Neuro: Negative for altered mental status, headache, weakness. 20:20 All other systems are negative. Exam: 20:25 Constitutional: The patient appears in no acute distress, alert, awake, non-toxic, well cp developed, well nourished, uncomfortable. 20:25 Head/Face: Normocephalic, atraumatic. cp 20:25 Neck: ROM/movement: is normal, is supple, without pain, no range of motions limitations. 20:25 Chest/axilla: Inspection: normal. 20:25 Cardiovascular: Rate: bradycardic. 20:25 Respiratory: the patient does not display signs of respiratory distress, Respirations: normal, no use of accessory muscles, no retractions, labored breathing, is not present. 20:25 Abdomen/GI: Inspection: abdomen appears normal. 20:25 Back: pain, is absent, ROM is normal. 20:25 Musculoskeletal/extremity: Extremities: grossly normal except: noted in the left great toe: pain, ROM: full active range of motion, in the left great toe, Perfusion: the extremity is normally perfused throughout, the left great toe Sensation intact. Nails: partial avulsion, left great toe. Vital Signs: 20:11 BP 150 / 74; Pulse 51; Resp 18; Temp 98.3; Pulse Ox 100% ; Weight 97.52 kg; Height 6 zm ft. 2 in. (187.96 cm); 22:55 BP 132 / 70; Pulse 66; Resp 16 S; Temp 99.2(O); Pulse Ox 97% on R/A; bb 20:11 Body Mass Index 27.60 (97.52 kg, 187.96 cm) zm MDM: 19:58 Patient medically screened. cp 21:00 Differential diagnosis: fracture, sprain, laceration. cp 22:22 Data reviewed: vital signs, nurses notes, radiologic studies, plain films. cp 22:22 Test interpretation: by ED physician or midlevel provider: plain radiologic studies. cp Counseling: I had a detailed discussion with the patient and/or guardian regarding: the historical points, exam findings, and any diagnostic results supporting the discharge/admit diagnosis, radiology results. Response to treatment: the patient's symptoms have markedly improved after treatment, and as a result, I will discharge patient. 22:22 ED course: Pain improved with meds. Xrays of left foot negative for fracture. Nail cp removed and replaced with figure eight stitch. Will discharge to home and recommend f/u with podiatry. 11/13 20:11 Order name: XRAY Foot LEFT 3 View; Complete Time: 21:08 cp 11/13 21:08 Interpretation: Reviewed report. cp 11/13 20:11 Order name: Dressing - Wound; Complete Time: 22:54 cp 11/13 20:11 Order name: Gloves, Sterile; Complete Time: 21:11 cp 11/13 20:11 Order name: Setup Suture Tray; Complete Time: 21:11 cp 11/13 22:16 Order name: Wound dressing; Complete Time: 22:53 cp Administered Medications: 21:11 Drug: Hydrocodone-Acetaminophen (7.5 mg-325 mg) 1 tabs Route: PO; bb 22:53 Follow up: Response: No adverse reaction bb 22:25 Drug: Marcaine (bupivacaine) (0.5 %) 10 ml {Note: by Dwight ZAMORA to affected area.} bb Volume: 10 ml; Route: Infiltration; 22:54 Follow up: Response: No adverse reaction bb 22:25 Drug: Lidocaine (1 %) 10 ml {Note: by Dwight ZAMORA to affected area.} Volume: 20 ml; bb Route: Infiltration; 22:54 Follow up: Response: No adverse reaction bb Disposition Summary: 11/13/21 22:22 Discharge Ordered Location: Home cp Problem: new cp Symptoms: have improved cp Condition: Stable cp Diagnosis - Contusion of great toe with damage to nail - right great toe cp Followup: cp - With: Raffaele Ernandez DPM - When: 2 - 3 days - Reason: Wound Recheck Discharge Instructions: - Discharge Summary Sheet cp - Nail Avulsion cp Forms: - Medication Reconciliation Form cp - Thank You Letter cp - Antibiotic Education cp - Prescription Opioid Use cp Prescriptions: - Cephalexin 500 mg Oral Capsule - take 1 capsule by ORAL route every 8 hours for 10 days; 30 capsule; Refills: 0, cp Product Selection Permitted - Ibuprofen 800 mg Oral Tablet - take 1 tablet by ORAL route every 8 hours As needed take with food; 30 tablet; cp Refills: 0, Product Selection Permitted - Tramadol 50 mg Oral Tablet - take 1 tablet by ORAL route every 8 hours as needed; 12 tablet; Refills: 0, cp Product Selection Permitted Signatures: Dispatcher [employer] Lakia Perales RN RN bb Page, Corey, PA PA cp Corrections: (The following items were deleted from the chart) 11/14 22:43 22:42 MS/extremity: Positive for injury or acute deformity, pain, of the left great cp toe, cp
[2021-11-13 23:04] VITALS: BP 132/70; TEMP 99.2; O2SAT 97
== END 2021-11-13 22:56 | disposition home or self-care (01) ==
LOC: ER 17:47
DX: S90.212A Contusion of left great toe with damage to nail, initial encounter (principal); W22.8XXA Striking against or struck by other objects, initial encounter
CPT/HCPCS: 99284

== ENCOUNTER 2022-08-03 19:42 | Emergency (ER) | payer SELFPAY ==
--- OUTSIDE RECORDS SUMMARY | 2022-08-03 19:46 | XMS REPORT | Continuity of Care Document ---
:1980 Author Organization [facility] t Address [address] [facility] [address] [place] [address] Care Team Providers Name Role Phone PCP, PATIENT DOES NOT HAVE A Primary Care Physician Unavaila ble Only, Gal Adult Uc Test Attending Clinician Unavailable Jennifer Rueda Attending Clinician JENNIFER NERI Attending Clinician Unavailable Doctor Unassigned, [place] Attending Clinician Unavailable Obed Hillman Attending Clinician OBED PATEL Attending Clinician Unavailable Tyree Lopez DO Attending Clinician TYREE LOPEZ Attending Clinician Unavailable Problems Condition Condition Condition Status Onset Resolution Last Treating Co mments Source Name Details Category Date Date Treatment Clinician Date No known No known Disease Unive rs active active ity of problems problems [facility] Allergies, Adverse Reactions, Alerts Allergy Allergy Status Severity Reaction(s) Onset Inactive Treating Comm ents Source Name Type Date Date Clinician NO KNOWN Drug Active Univers ALLERGIE Class ity of S [facility] Social History Social Habit Start Date Stop Date Quantity Comments Source Sex Assigned At [birth year] [facility] 00:00:00 00:00:00 [facility] Smoking Status Start Date Stop Date Source Unknown if ever smoked [facility] Medications Ordered Filled Start Stop Current Ordering Indication Dosage Frequency Signature Comments Components Source Medication Medication Date Date Medication? Clinician (SIG) Name Name mupirocin 2 2020- Yes [id number] Apply to Univers % ointment 8-12 area(s) 3 ity of 00:00: (three) [place] 00 times Medical daily. Branch benzonatate 2019-05 Yes [id number] 100mg Take 1 Univers 100 mg 2-02 capsule by ity of capsule 00:00: mouth 3 [place] 00 (three) Medical times Branch daily as needed for Cough. chlorphenir 2019-05 Yes [id number] 4mg Take 1 Univers amine 4 mg 2-02 tablet by ity of tablet 00:00: mouth [place] 00 every 6 Medical (six) Branch hours as needed for Allergies or Runny nose. multivitami 2019-05 Yes [id number] 1{capsu Take 1 Univers n capsule 2-02 le} capsule by ity of 00:00: mouth [place] 00 daily. Medical Branch calcium-mag 2019-05 Yes [id number] Take as Univers nesium-zinc 2-02 directed ity of 333-133-8.3 00:00: for daily [place] mg Tab 00 dose. Medical Branch Procedures This patient has no known procedures. Encounters Start End Encounter Admission Attending Care Care Encounter Source Date/Time Date/Time Type Type Clinicians Facility Department ID 2021-05-20 2021-05-20 Laboratory Only, Gal Adult Uc Test [facility] [id number] [id number] Univers 14:45:00 15:00:00 Only Jennifer Neri [facility] [id number] ity of PEDIATRIC [id number] [facility] [id number] [facility] 370 Branch 2021-05-20 2021-05-20 Outpatient R VINNIE [facility] [id number] Univers 14:45:00 14:45:00 [facility] ity of [facility] 2021-05-20 2021-05-20 Orders Doctor COOPER [id number] Univers 00:00:00 00:00:00 Only Unassigned, LATANYA [id number] ity of [place] [facility] [id number] Parag as [id number] [facility] 009 Branch 2020-12-30 2020-12-30 Emergency [facility] [id number] 21:37:00 23:13:00 Obed Goyal [id number] [place] [id number] [place] [id number] 2020-12-30 2020-12-30 Emergency [facility] [id number] Univers 21:37:00 23:13:00 Obed Goyal [id number] i ty of [place] [id number] [facility] [id number] [address] 2020-12-30 2020-12-30 Emergency [facility] [id number] Univers 21:37:00 21:37:00 OBED dias [facility] 2020-12-30 2020-12-30 Orders Doctor COOPER [id number] 00:00:00 00:00:00 Only Unassigned, LATANYA [id number] [place] [facility] [id number] [id number] 2020-12-30 2020-12-30 Orders Doctor COOPER [id number] Univers 00:00:00 00:00:00 Only Unassigned, LATANYA [id number] ity of [place] [facility] [id number] [place] [id number] [address] 2020-04-21 2020-04-21 Emergency [facility] [id number] 10:24:00 11:44:00 Tyree Goyal [id number] [place] [id number] [place] [id number] [facility] 2020-04-21 2020-04-21 [facility] [id number] Univers 10:24:00 11:44:00 Tyree Goyal [id number] i ty of [place] [id number] [facility] [id number] [address] 2020-04-21 2020-04-21 Emergency [facility] ERT [id number] Univers 10:24:00 10:24:00 TYREE dias [facility] Results This patient has no known results.
--- NOTE | 2022-08-03 20:29 | EDPHYS ---
Physician Documentation [facility] Name: George Morales Jr Age: 42 yrs Sex: Male : 1980 Arrival Date: 08/03/2022 Time: 19:46 Bed 19 Private MD: ED Physician Adalid Metcalf Historical: - Allergies: 08/03 20:12 No Known Allergies; ll3 - Home Meds: 20:12 Lortab 10 Oral daily [Active]; ll3 - PMHx: 20:12 None; ll3 - PSHx: 20:12 None; ll3 - Immunization history:: Client reports receiving the 2nd dose of the Covid vaccine. - Social history:: Smoking status: Patient denies any tobacco usage or history of. Vital Signs: 20:09 BP 152 / 93; Pulse 73; Resp 17; Temp 99.3(O); Pulse Ox 99% on R/A; Weight 92.99 kg (R); ll3 Height 6 ft. 2 in. (R); Pain 5/10; 20:09 Body Mass Index 26.32 (92.99 kg, 187.96 cm) ll3 20:09 Pain Scale: Adult ll3 MDM: 20:05 Patient medically screened. snw Administered Medications: No medications were administered Disposition Summary: 08/03/22 20:29 Discharge Ordered Location: Home snw Condition: Stable snw Diagnosis - Dental caries, unspecified snw - Sub-mandibular lymphadenopathy snw Followup: snw - With: Emergency Department - When: As needed - Reason: Worsening of condition Followup: snw - With: Private Physician - When: Tomorrow - Reason: Recheck today's complaints, Continuance of care, Re-evaluation by your physician Forms: - Medication Reconciliation Form snw - Thank You Letter snw - Antibiotic Education snw - Prescription Opioid Use snw Signatures: Shelly Paulino FNP-C TRAY P[employer]ER-Csnw Janice Mendes RN RN ll3
--- NOTE | 2022-08-03 20:29 | ER ---
Nurse's Notes [facility] Name: George Morales Jr Age: 42 yrs Sex: Male : 1980 Arrival Date: 08/03/2022 Time: 19:46 Bed 19 Private MD: Diagnosis: Dental caries, unspecified;Sub-mandibular lymphadenopathy Presentation: 08/03 20:09 Chief complaint: Patient states: States "My throat started swelling up yesterday and ll3 now I'm having trouble eating", swelling noted to right bottom jaw area, c/o throat pain /10. Coronavirus screen: Vaccine status: Patient reports receiving the 2nd dose of the covid vaccine. At this time, the client does not indicate any symptoms associated with coronavirus-19. Ebola Screen: No symptoms or risks identified at this time. Initial Sepsis Screen: Does the patient meet any 2 criteria? No. Patient's initial sepsis screen is negative. Does the patient have a suspected source of infection? No. Patient's initial sepsis screen is negative. Risk Assessment: Do you want to hurt yourself or someone else? Patient reports no desire to harm self or others. Onset of symptoms was August 02, 2022. 20:09 Method Of Arrival: Ambulatory ll3 20:09 Acuity: MARGARITA 3 ll3 Historical: - Allergies: 20:12 No Known Allergies; ll3 - Home Meds: 20:12 Lortab 10 Oral daily [Active]; ll3 - PMHx: 20:12 None; ll3 - PSHx: 20:12 None; ll3 - Immunization history:: Client reports receiving the 2nd dose of the Covid vaccine. - Social history:: Smoking status: Patient denies any tobacco usage or history of. Screenin:27 [facility] ED Fall Risk Assessment (Adult) History of falling in the last 3 months, pf1 including since admission No falls in past 3 months (0 pts) Confusion or Disorientation No (0 pts) Intoxicated or Sedated No (0 pts) Impaired Gait No (0 pts) Mobility Assist Device Used No (0 pt) Altered Elimination No (0 pt) Score/Fall Risk Level 0 - 2 = Low Risk Oriented to surroundings, Maintained a safe environment, Educated pt \\T\\ family on fall prevention, incl call for assistance when getting out of bed, Assessed \\T\\ reinforced patient's understanding of fall precautions, Provided non-skid footwear, Hourly rounding (assess needs \\T\\ fall precautionary measures) done, Used ambulatory aids as needed (educated on \\T\\ assisted with). Abuse screen: Denies threats or abuse. Nutritional screening: No deficits noted. Tuberculosis screening: No symptoms or risk factors identified. Assessment: 20:15 General: Appears in no apparent distress. uncomfortable, well groomed, well developed, pf1 Behavior is calm, cooperative, appropriate for age, quiet. 20:15 Pain: Complains of pain in sore throat pain 5 with swelling,onset 2 days. Patient pf1 stated had fever on Sunday, but now has resolved. Patient stated took Ibuprofen 800mg at 1600. Pain currently is 5 out of 10 on a pain scale. Neuro: Level of Consciousness is awake, alert, obeys commands, Oriented to person, place, time, situation. Cardiovascular: No deficits noted. Capillary refill < 3 seconds Patient's skin is warm and dry. Respiratory: No deficits noted. Reports Airway is patent Trachea midline Respiratory effort is even, unlabored, Respiratory pattern is regular, symmetrical. GI: No deficits noted. No signs and/or symptoms were reported involving the gastrointestinal system. : No deficits noted. No signs and/or symptoms were reported regarding the genitourinary system. EENT: Throat is reddened bilaterally with swelling. Derm: No deficits noted. No signs and/or symptoms reported regarding the dermatologic system. Musculoskeletal: No deficits noted. No signs and/or symptoms reported regarding the musculoskeletal system. Vital Signs: 20:09 BP 152 / 93; Pulse 73; Resp 17; Temp 99.3(O); Pulse Ox 99% on R/A; Weight 92.99 kg (R); ll3 Height 6 ft. 2 in. (R); Pain 5/10; 20:09 Body Mass Index 26.32 (92.99 kg, 187.96 cm) ll3 20:09 Pain Scale: Adult ll3 ED Course: 19:46 Patient arrived in ED. mr 19:51 Shelly Paulino FNP-C [facility] snw 19:51 Adalid Metcalf MD is Attending Physician. snw 20:08 Pepper mensah RN is Primary Nurse. pf1 20:12 Triage completed. ll3 20:12 Arm band placed on Patient placed in an exam room, on a stretcher, on pulse oximetry. ll3 Administered Medications: No medications were administered Outcome: 20:29 Discharge ordered by MD. sol Signatures: Shelly Paulino, MELEC MERCHANDISE ADJUSTMENT CLERK-Csnw Ana Herron mr Mendes, Janice, RN RN ll3 Pepper mensah RN RN pf1
[2022-08-03] MEDS ORDERED: HYDROCODONE/APAP 10/325 TAB ONE (20:35)
[2022-08-03 22:50] VITALS: BP 142/88; TEMP 98.9; O2SAT 94
== END 2022-08-03 20:58 | disposition home or self-care (01) ==
LOC: ER 19:42
DX: K02.9 Dental caries, unspecified (principal); R59.0 Localized enlarged lymph nodes
CPT/HCPCS: 99283

== ENCOUNTER 2022-08-06 09:00 | Emergency (ER) | payer SELFPAY ==
--- OUTSIDE RECORDS SUMMARY | 2022-08-06 09:03 | XMS REPORT | Continuity of Care Document ---
:1980 Author Organization [facility] t Address [address] [facility] [address] [place] [address] Care Team Providers Name Role Phone PCP, PATIENT DOES NOT HAVE A Primary Care Physician Unavaila ble Only, Gal Adult Uc Test Attending Clinician Unavailable Jennifer Rueda Attending Clinician JENNIFER NERI Attending Clinician Unavailable Doctor Unassigned, [place] Attending Clinician Unavailable Obed Hillman Attending Clinician OBED PATEL Attending Clinician Unavailable Tyree Lopez DO Attending Clinician TYREE LOPEZ Attending Clinician Unavailable Problems Condition Condition Condition Status Onset Resolution Last Treating Co mments Source Name Details Category Date Date Treatment Clinician Date No known No known Disease Unive rs active active ity of problems problems [facility] Allergies, Adverse Reactions, Alerts Allergy Allergy Status Severity Reaction(s) Onset Inactive Treating Comm ents Source Name Type Date Date Clinician NO KNOWN Drug Active Univers ALLERGIE Class ity of S [facility] Social History Social Habit Start Date Stop Date Quantity Comments Source Sex Assigned At [birth year] [facility] 00:00:00 00:00:00 [facility] Smoking Status Start Date Stop Date Source Unknown if ever smoked [facility] Medications Ordered Filled Start Stop Current Ordering Indication Dosage Frequency Signature Comments Components Source Medication Medication Date Date Medication? Clinician (SIG) Name Name mupirocin 2 2020- Yes [id number] Apply to Univers % ointment 8-12 area(s) 3 ity of 00:00: (three) [place] 00 times Medical daily. Branch benzonatate 2019-05 Yes [id number] 100mg Take 1 Univers 100 mg 2-02 capsule by ity of capsule 00:00: mouth 3 [place] 00 (three) Medical times Branch daily as needed for Cough. chlorphenir 2019-05 Yes [id number] 4mg Take 1 Univers amine 4 mg 2-02 tablet by ity of tablet 00:00: mouth [place] 00 every 6 Medical (six) Branch hours as needed for Allergies or Runny nose. multivitami 2019-05 Yes [id number] 1{capsu Take 1 Univers n capsule 2-02 le} capsule by ity of 00:00: mouth [place] 00 daily. Medical Branch calcium-mag 2019-05 Yes [id number] Take as Univers nesium-zinc 2-02 directed ity of 333-133-8.3 00:00: for daily [place] mg Tab 00 dose. Medical Branch Procedures This patient has no known procedures. Encounters Start End Encounter Admission Attending Care Care Encounter Source Date/Time Date/Time Type Type Clinicians Facility Department ID 2021-05-20 2021-05-20 Laboratory Only, Gal Adult Uc Test [facility] 1.2.840.114 [id number] Univers 14:45:00 15:00:00 Only Jennifer Neri [facility] [id number] ity of PEDIATRIC [id number] [facility] [id number] [facility] 370 Branch 2021-05-20 2021-05-20 Outpatient R VINNIE [facility] [id number] Univers 14:45:00 14:45:00 [facility] ity of [facility] 2021-05-20 2021-05-20 Orders Doctor COOPER 1.2.840.114 [id number] Univers 00:00:00 00:00:00 Only Unassigned, LATANYA [id number] ity of [place] [facility] [id number] [place] as [id number] [facility] 009 Branch 2020-12-30 2020-12-30 Emergency [facility] [id number] 21:37:00 23:13:00 Obed Goyal [id number] [place] [id number] [place] [id number] 2020-12-30 2020-12-30 Emergency [facility] [id number] Univers 21:37:00 23:13:00 Obed Goyal [id number] i ty of [place] [id number] [facility] [id number] [address] 2020-12-30 2020-12-30 [facility] [id number] Univers 21:37:00 21:37:00 OBED dias [facility] 2020-12-30 2020-12-30 Orders Doctor COOPER 1.2.840.114 [id number] 00:00:00 00:00:00 Only Unassigned, LATANYA [id number] [place] [facility] [id number] [id number] 2020-12-30 2020-12-30 Orders Doctor COOPER [id number] [id number] Univers 00:00:00 00:00:00 Only Unassigned, LATANYA [id number] ity of [place] [facility] [id number] [place] [id number] [address] 2020-04-21 2020-04-21 Emergency [facility] [id number] 10:24:00 11:44:00 Tyree Goyal [id number] [place] [id number] [place] [id number] [facility] 2020-04-21 2020-04-21 [facility] [id number] Univers 10:24:00 11:44:00 Tyree Goyal [id number] i ty of [place] [id number] [facility] [id number] [address] 2020-04-21 2020-04-21 [facility] [id number] Univers 10:24:00 10:24:00 TYREE dias [facility] Results This patient has no known results.
[2022-08-06 09:35] LABS: Absolute Lymphocytes (CBC) 0.9 K/uL (0.7-4.9); Hematocrit 43.9 % (39.6-49.0); Lymphocytes % 8.3 % (15.3-44.8); MCV 87.6 fL (80-100); MPV 7.4 fL (7.6-11.3); RBC Red Blood Cell Count 5.01 M/uL (4.33-5.43)
[2022-08-06 09:47] LABS: Potassium 4.2 mEq/L (3.5-5.1)
[2022-08-06] MEDS ORDERED: KETOROLAC 30 MG/ML INJ ONE (09:54)
[2022-08-06] MEDS ORDERED: NA CHLORIDE 0.9% 1,000 ML ONE (09:54)
--- NOTE | 2022-08-06 10:26 | RAD REPORT ---
EXAM DESCRIPTION: CT - Soft Tissue Neck W/Contr CLINICAL HISTORY: Swelling;Pain COMPARISON: No comparisons TECHNIQUE: Axial thin cut CT images of the neck were performed following intravenous administration of 95 mL Isovue-300. Multiplanar reformats were generated and reviewed. All CT scans are performed using dose optimization technique as appropriate and may include automated exposure control or mA/KV adjustment according to patient size. FINDINGS: Lobulated periapical abscess is seen along the roots of the right mandibular second and th ird molars. Small buccal cortex defect is present, best appreciated on coronal image 37/150 series 20 2. Soft tissue swelling along the deep muscles of the tongue, and the right side of the neck, with platy smal thickening. A lobulated subperiosteal collection, somewhat ill-defined, is present along the buc dara cortex of the right mandible body, measuring 2.7 x 1.0 x 1.0 centimeter in greatest dimensions. C omponent of the collection extends along the inferior margin of the mandibular body. Slight midline s hift of the soft tissues of the deep muscles of the tongue. Partial effacement of the right paraphary ngeal fat plane. Mild edema extends into the right solution director space and right submandibular triangle. Partial effacement of the nasopharyngeal and oropharyngeal airway on the right, with slight effaceme nt of the right vallecula. Fossa of Rosenmuller are unremarkable. Epiglottis and aryepiglottic folds are normal. Piriform sinuses are well aerated. The vocal cords are normal in appearance. Other salivary glands are normal in appearance. Mildly prominent lymph nodes on the right at levels 1B, 2, and 3. These are likely reactive. Polypoidal mucosal thickening along the left ostiomeatal unit and middle meatus. Small mucous retenti on cysts in the maxillary sinuses bilaterally. Upper lung gasca are clear. Included intracranial contents are unremarkable. IMPRESSION: Lobulated periapical abscess at the roots of the right mandibular second and third molar s. Small buccal cortex defect with an adjacent 2.7 centimeter subperiosteal abscess, with contiguous edematous changes of the deep muscles of the tongue, extending along the solution director and parapharyngea l spaces on the right, with partial effacement of the nasopharyngeal and oropharyngeal airways on the right. The findings were communicated to Evelina Guzman on 08/06/2022 at 10:20 hours.
--- NOTE | 2022-08-06 10:38 | EDPHYS ---
Physician Documentation [facility] Name: George Morales Jr Age: 42 yrs Sex: Male : 1980 Arrival Date: 08/06/2022 Time: 09:00 Bed 6 Private MD: ED Physician Heraclio Raymundo Historical: - Allergies: 08/06 09:13 No Known Allergies; kr3 - PMHx: 09:13 None; kr3 - PSHx: 09:13 None; kr3 - Immunization history:: Adult Immunizations not up to date. - Social history:: Smoking status: Patient/guardian denies using tobacco, the patient reports quitting approximately 6.5 years ago. Vital Signs: 09:05 BP 140 / 90; Pulse 95; Resp 18; Temp 98.8; Pulse Ox 96% on R/A; Weight 92.99 kg; Height kr3 6 ft. 2 in. ; Pain 6/10; 10:25 BP 148 / 83; Pulse 77; Resp 16; Pulse Ox 100% on R/A; hb 09:05 Body Mass Index 26.32 (92.99 kg, 187.96 cm) kr3 09:05 Pain Scale: Adult kr3 MDM: 09:06 Patient medically screened. kb 10:20 Discussion of test interpretation with radiology: I had a discussion with radiology diony regarding a test interpretation. CT results discussed with Dr Carpenter. 08/06 09:10 Order name: IV Start; Complete Time: 09:30 kb 08/06 09:10 Order name: CBC with Diff; Complete Time: 09:41 kb 08/06 09:10 Order name: Basic Metabolic Panel; Complete Time: 09:47 kb 08/06 09:10 Order name: CT Soft Tissue Neck W/contr; Complete Time: 10:27 kb Administered Medications: 09:56 Drug: Ketorolac IVP 15 mg Route: IVP; Site: right antecubital; ss 09:56 Drug: NS 0.9% IV 1000 ml Route: IV; Rate: 1000 ml; Site: right antecubital; ss Disposition Summary: 08/06/22 10:38 Transfer Ordered Accepting Physician: Dr vora Transfer Location: [facility] kb Reason: Higher level of care kb Condition: Stable kb Problem: new kb Symptoms: are unchanged kb Diagnosis - Ludwigs Angina kb Forms: - Medication Reconciliation Form kb - SBAR form kb Signatures: Dispatcher [employer] EDEvelina Starr, WAGE ANALYST-C PATRICIA-Lucina Quiros RN RN ss Lisa Rosas RN RN kr3 Corrections: (The following items were deleted from the chart) 09:30 09:13 Social history: Smoking status: Patient denies any tobacco usage or history of. kr3 kr3
--- NOTE | 2022-08-06 10:38 | ER ---
Nurse's Notes [facility] Name: George Morales Jr Age: 42 yrs Sex: Male : 1980 Arrival Date: 08/06/2022 Time: 09:00 Bed 6 Private MD: Diagnosis: Ludwigs Angina Presentation: 08/06 09:05 Method Of Arrival: Ambulatory kr3 09:05 Acuity: MARGARITA 3 kr3 09:05 Chief complaint: Patient states: I have a big lump on my neck. I was seen here a couple kr3 days ago and the antibiotic that I was given is not helping and the swelling is getting worse. I am having trouble breathing at night because my mouth gets so dry. Coronavirus screen: Vaccine status: Patient reports receiving the 2nd dose of the covid vaccine. Ebola Screen: Patient denies travel to an Ebola-affected area in the 21 days before illness onset. Acute neurological deficit: none identified. Initial Sepsis Screen: Does the patient meet any 2 criteria? No. Patient's initial sepsis screen is negative. Does the patient have a suspected source of infection? No. Patient's initial sepsis screen is negative. Risk Assessment: Do you want to hurt yourself or someone else? Patient reports no desire to harm self or others. 09:12 Onset of symptoms was July 31, 2022. kr3 Triage Assessment: 09:14 General: Appears in no apparent distress. uncomfortable, Behavior is calm, cooperative, kr3 appropriate for age. EENT: Reports difficulty swallowing since 07/31/2022. Neuro: Level of Consciousness is awake, alert, obeys commands, Oriented to person, place, time, situation. Cardiovascular: Patient's skin is warm and dry. Respiratory: Airway is patent Respiratory effort is even, unlabored, Respiratory pattern is regular, symmetrical. GI: No signs and/or symptoms were reported involving the gastrointestinal system. : No signs and/or symptoms were reported regarding the genitourinary system. Derm: No signs and/or symptoms reported regarding the dermatologic system. Musculoskeletal: Swelling present in neck. Historical: - Allergies: 09:13 No Known Allergies; kr3 - PMHx: 09:13 None; kr3 - PSHx: 09:13 None; kr3 - Immunization history:: Adult Immunizations not up to date. - Social history:: Smoking status: Patient/guardian denies using tobacco, the patient reports quitting approximately 6.5 years ago. Screenin:26 [facility] ED Fall Risk Assessment (Adult) Score/Fall Risk Level 0 - 2 = Low Risk hb Oriented to surroundings, Maintained a safe environment, Educated pt \T\ family on fall prevention, incl call for assistance when getting out of bed. Abuse screen: Denies threats or abuse. Denies injuries from another. Nutritional screening: No deficits noted. Tuberculosis screening: No symptoms or risk factors identified. Assessment: 09:30 General: Appears in no apparent distress. Behavior is calm, cooperative. Pain: Pain hb currently is 6 out of 10 on a pain scale. Neuro: Level of Consciousness is awake, alert, obeys commands, Oriented to person, place, time, situation. Cardiovascular: Patient's skin is warm and dry. Respiratory: Respiratory effort is even, unlabored, Respiratory pattern is regular, symmetrical. GI: No signs and/or symptoms were reported involving the gastrointestinal system. : No signs and/or symptoms were reported regarding the genitourinary system. EENT: No signs and/or symptoms were reported regarding the EENT system. Derm: Skin is pink, warm \T\ dry. Musculoskeletal: Reports neck pain. 10:26 Reassessment: Patient appears in no apparent distress at this time. Patient and/or hb family updated on plan of care and expected duration. Pain level reassessed. Patient is alert, oriented x 3, equal unlabored respirations, skin warm/dry/pink. Vital Signs: 09:05 BP 140 / 90; Pulse 95; Resp 18; Temp 98.8; Pulse Ox 96% on R/A; Weight 92.99 kg; Height kr3 6 ft. 2 in. ; Pain 6/10; 10:25 BP 148 / 83; Pulse 77; Resp 16; Pulse Ox 100% on R/A; hb 09:05 Body Mass Index 26.32 (92.99 kg, 187.96 cm) kr3 09:05 Pain Scale: Adult kr3 ED Course: 09:00 Patient arrived in ED. am2 09:05 Evelina Guzman FNP-C is [facility]. kb 09:05 Heraclio Raymundo MD is Attending Physician. kb 09:12 Triage completed. kr3 09:16 Arm band placed on left wrist. kr3 09:29 Initial lab(s) drawn, by me, sent to lab. Inserted saline lock: 20 gauge in right tm3 antecubital area, using aseptic technique. 09:56 Lucina Jackson, RN is Primary Nurse. ss 10:04 CT Soft Tissue Neck W/contr In Process Unspecified. EDMS 10:26 Patient has correct armband on for positive identification. hb Administered Medications: 09:56 Drug: Ketorolac IVP 15 mg Route: IVP; Site: right antecubital; ss 09:56 Drug: NS 0.9% IV 1000 ml Route: IV; Rate: 1000 ml; Site: right antecubital; Outcome: 10:38 ER care complete, transfer ordered by . kb Signatures: Dispatcher [employer] EDMS Evelina Guzman, DIRECTOR OF FINANCIAL PLANNING-C DIRECTOR OF FINANCIAL PLANNING-Ckb Jonathan Michaud tm3 Lucina Jackson, JAYANT RN Lorena Caldera RN RN Mackey, Blanca am2 Lisa Rosas RN RN kr3 Corrections: (The following items were deleted from the chart) 09:13 09:05 Onset of symptoms was August 06, 2022 kr3 kr3 09:30 09:13 Social history: Smoking status: Patient denies any tobacco usage or history of. kr3 kr3
[2022-08-06] MEDS ORDERED: Levofloxacin500mg IV 500 MG/100 ML BAG IV ONE (11:07)
[2022-08-06 11:32] LABS: SARS-CoV-2 Antigen Rapid Res Negative (Negative)
[2022-08-06] MEDS ORDERED: VANCOMYCIN 1 GM/VIAL ONE (12:16)
[2022-08-06] MEDS ORDERED: NA CHLORIDE 0.9% 250 ML ONE (12:16)
[2022-08-06 14:56] VITALS: TEMP 98.8
[2022-08-06 14:58] VITALS: BP 148/83; O2SAT 100
== END 2022-08-06 12:28 | disposition short-term general hospital (02) ==
LOC: ER 09:00
DX: K12.2 Cellulitis and abscess of mouth (principal)
CPT/HCPCS: 36415; 70491; 80048; 85025; 87811; 96361; 96365; 96375; 99285; J7030; J7050; Q9967

== ENCOUNTER 2025-01-02 19:49 | Emergency (ER) | payer SELFPAY ==
--- OUTSIDE RECORDS SUMMARY | 2025-01-02 19:53 | XMS REPORT | Continuity of Care Document ---
Author Name Unknown Address [address] [place] [address] [facility] Address [address] [place] [address] Care Team Providers Care Film Librarian Name Role Phone PCP, PATIENT DOES NOT HAVE A Primary Care Physic selina Unavailable IRAM CANTOR MTAGARY Attending Clinician Unavail able IRAM CANTOR Attending Clinician Unavailable Only, Gal Adult Uc Test Attending Clinician Unav ailable Jennifer Rueda Attending Clinician [phone] JENNIFER NERI Attending Clinician Unavailable Doctor Unassigned, [place] Attending Clinician U navailable Obed Hillman Attending Clinician [phone] OBED PATEL Attending Clinician Unavailable Lara Lopez DO Attending Clinician [phone] LARA LOPEZ Attending Clinician Unavailable IRAM CANTOR MTAGARY Admitting Clinician Unavail able Problems Condition Name Condition Details Condition Category Status Onset Date Resolution Date Last Treatment Date Treating Clinician Comments Source No known active problems No known active problems Disease [facility] Allergies, Adverse Reactions, Alerts Allergy Name Allergy Type Status Severity Reaction(s) Onset Date Inactive Date Treating Clinician Comments Source NO KNOWN ALLERGIE S Drug Class Active [facility] Social History Social Habit Start Date Stop Date Quantity Comments Source Sex Assigned At 1980 00:00:00 1980 00:00:00 [facility] Smoking Status Start Date Stop Date Source Unknown if ever smoked [facility] Medications Ordered Medication Name Filled Medication Name Start Date Stop Date Current Medication? Ordering Clinician Indication Dosage Frequency Signature (SIG) Comments Components Source mupirocin 2 % ointment 12-30 00:00: 00 Yes [id number] Apply to area(s) 3 (three) times daily. [facility] benzonatate 100 mg capsule 2019-05 00:00: 00 Yes [id number] 100mg Take 1 capsule by mouth 3 (three) times daily as needed for Cough. [facility] chlorphenir amine 4 mg tablet 2019-05 00:00: 00 Yes [id number] 4mg Take 1 tablet by mouth every 6 (six) hours as needed for Allergies or Runny nose. [facility] multivitami n capsule 2019-05 00:00: 00 Yes [id number] 1{capsu le} Take 1 capsule by mouth daily. [facility] calcium-mag nesium-zinc 333-133-8.3 mg Tab 2019-05 00:00: 00 Yes [id number] Take as directed for daily dose. [facility] Encounters Start Date/Time End Date/Time Encounter Type Admission Type Attending Clinicians Care Facility Care Department Encounter ID Source 2022-09-06 13:10:27 Outpatient [facility] [id number] [facility] 2022-08-17 07:50:00 2022-09-15 23:59:00 Outpatient IRAM CANTOR [facility] [id number] [facility] 2022-08-06 18:24:00 2022-08-09 11:09:00 Inpatient E IRAM CANTOR [facility] [id number] [facility] 2022-08-07 14:00:00 2022-08-07 14:00:00 Outpatient IRAM CANTOR [facility] [id number] [facility] 2021-05-20 14:45:00 2021-05-20 15:00:00 Laboratory Only Only, Gal Adult Uc Test Jennifer Neri [facility] [id number] [facility] 2021-05-20 14:45:00 2021-05-20 14:45:00 Outpatient JENNIFER NOYOLA [facility] [id number] [facility] 2021-05-20 00:00:00 2021-05-20 00:00:00 Orders Only Doctor Unassigned, [place] [facility] [id number] [facility] 2020-12-30 21:37:00 2020-12-30 23:13:00 Emergency Obed Patel [facility] [id number] [facility] 2020-12-30 21:37:00 2020-12-30 23:13:00 Emergency Obed Patel [facility] [id number] 2020-12-30 21:37:00 2020-12-30 21:37:00 Emergency X AMANDA [facility] [id number] [facility] 2020-12-30 00:00:00 2020-12-30 00:00:00 Orders Only Doctor Unassigned, [place] [facility] [id number] [facility] 2020-12-30 00:00:00 2020-12-30 00:00:00 Orders Only Doctor Unassigned, [place] [facility] [id number] 2020-04-21 10:24:00 2020-04-21 11:44:00 Emergency Claus Lopezkenrick [facility] [id number] [facility] 2020-04-21 10:24:00 2020-04-21 11:44:00 Emergency Singer Lara [facility] [id number] [id number] 2020-04-21 10:24:00 2020-04-21 10:24:00 Emergency X CLAUS LOPEZKENRICK [facility] [id number] [facility]
[2025-01-02] MEDS ORDERED: DIAZEPAM 5 MG TABLET ONE (20:17)
[2025-01-02] MEDS ORDERED: HYDROCODONE/APAP 5/325 MG TAB ONE (20:17)
--- NOTE | 2025-01-02 21:00 | RAD REPORT ---
EXAMINATION: Lumbar Spine 3 Views CLINICAL INDICATION: Back pain FINDINGS: No fracture or dislocation seen. Mild spondylosis involves the lumbar spine.
--- NOTE | 2025-01-02 21:17 | ER ---
Nurse's Notes [facility] Name: George Morales Jr Age: 44 yrs Sex: Male : 1980 Arrival Date: 01/02/2025 Time: 19:49 Bed 20 Private MD: Diagnosis: Low back pain Presentation: 01/02 20:13 Chief complaint: Patient states: left lower back pain after bending down on Sunday. me1 Pain level 8/10. Coronavirus screen: Vaccine status: Patient reports receiving the 2nd dose of the covid vaccine. Ebola Screen: No symptoms or risks identified at this time. Initial Sepsis Screen: Does the patient meet any 2 criteria? HR > 90 bpm. Does the patient have a suspected source of infection? No. Patient's initial sepsis screen is negative. Risk Assessment: Do you want to hurt yourself or someone else? Patient reports no desire to harm self or others. Onset of symptoms was December 31, 2024. 20:13 Method Of Arrival: Ambulatory [facility] 20:13 Acuity: MARGARITA 4 me1 Triage Assessment: 20:22 General: Appears uncomfortable, Behavior is calm, cooperative, appropriate for age. me1 Pain: Complains of pain in left low back Pain does not radiate. Pain currently is 8 out of 10 on a pain scale. at worst was 10 out of 10 on a pain scale. Pain began gradually, Is continuous. Neuro: Level of Consciousness is awake, alert, obeys commands, Oriented to person, place, time, situation, Appropriate for age. Cardiovascular: Patient's skin is warm and dry. Respiratory: Airway is patent Respiratory effort is even, unlabored, Respiratory pattern is regular, symmetrical. Derm: Skin is healthy with good turgor, Skin is normal. Musculoskeletal: Reports pain in left low back. Historical: - Allergies: 20:15 No Known Allergies; me1 - PMHx: 20:15 None; me1 - PSHx: 20:15 neck surgery; leg surgery; me1 - Immunization history:: Adult Immunizations up to date. - Infectious Disease History:: Denies. - Social history:: Smoking status: Patient denies any tobacco usage or history of. Screenin:26 [facility] ED Fall Risk Assessment (Adult) History of falling in the last 3 months, bm8 including since admission No falls in past 3 months (0 pts) Confusion or Disorientation No (0 pts) Intoxicated or Sedated No (0 pts) Impaired Gait Yes (1 pt) Mobility Assist Device Used No (0 pt) Altered Elimination No (0 pt) Score/Fall Risk Level 0 - 2 = Low Risk Oriented to surroundings, Maintained a safe environment, Educated pt \T\ family on fall prevention, incl call for assistance when getting out of bed, Assessed \T\ reinforced patient's understanding of fall precautions, Hourly rounding (assess needs \T\ fall precautionary measures) done, Used ambulatory aids as needed (educated on \T\ assisted with), Used gait belt as appropriate. Abuse screen: Denies threats or abuse. Nutritional screening: No deficits noted. Tuberculosis screening: No symptoms or risk factors identified. Assessment: 20:26 General: Appears in no apparent distress. uncomfortable, Behavior is calm, cooperative. bm8 Pain: Complains of pain in left low back Pain currently is 8 out of 10 on a pain scale. 20:26 Neuro: No deficits noted. Level of Consciousness is awake, alert, obeys commands, bm8 Oriented to person, place, time, situation. Cardiovascular: No deficits noted. Denies chest pain, Capillary refill < 3 seconds in bilateral fingers. Respiratory: No deficits noted. Airway is patent Respiratory effort is even, unlabored, Respiratory pattern is regular, symmetrical. GI: No deficits noted. No signs and/or symptoms were reported involving the gastrointestinal system. : No deficits noted. No signs and/or symptoms were reported regarding the genitourinary system. EENT: No deficits noted. No signs and/or symptoms were reported regarding the EENT system. Derm: No deficits noted. No signs and/or symptoms reported regarding the dermatologic system. Musculoskeletal: Circulation, motion, and sensation intact. Range of motion: limited in left lower back Reports pain in left low back Pain is 8 out of 10 on a pain scale. 21:29 Reassessment: No changes from previously documented assessment. Patient and/or family zm updated on plan of care and expected duration. Pain level reassessed. Patient is alert, oriented x 3, equal unlabored respirations, skin warm/dry/pink. Patient states symptoms have not improved. Vital Signs: 20:13 BP 124 / 85; Pulse 92; Resp 17; Temp 98.3; Pulse Ox 98% ; Weight 102.06 kg; Height 6 me1 ft. 2 in. ; Pain 8/10; 21:29 BP 126 / 77; Pulse 55; Resp 16; Temp 98.2; Pulse Ox 99% on R/A; Pain 8/10; zm 20:13 Body Mass Index 28.89 (102.06 kg, 187.96 cm) me1 20:13 Pain Scale: Adult me1 21:29 Pain Scale: Adult zm Crescent Coma Score: 20:26 Eye Response: spontaneous(4). Motor Response: obeys commands(6). Verbal Response: bm8 oriented(5). Total: 15. 21:29 Eye Response: spontaneous(4). Motor Response: obeys commands(6). Verbal Response: zm oriented(5). Total: 15. ED Course: 19:52 Patient arrived in ED. jj6 19:53 Umberto Hickman DO is Attending Physician. ms3 20:15 Triage completed. me1 20:15 Arm band placed on Patient placed in waiting room. me1 20:26 Keon Lopez, RN is Primary Nurse. bm8 20:26 Patient has correct armband on for positive identification. Bed in low position. Call bm8 light in reach. Adult w/ patient. Client placed on continuous cardiac and pulse oximetry monitoring. NIBP monitoring applied. Pulse ox on. NIBP on. Door closed. Noise minimized. Warm blanket given. Verbal reassurance given. 20:54 Lumbar Spine (3 Views) XRAY In Process Unspecified. EDMS 21:16 Ole Arriaza DO is Referral Physician. ms3 21:29 No provider procedures requiring assistance completed. Patient did not have IV access zm during this emergency room visit. 21:34 Provided Education on: follow up and medications. zm Administered Medications: 20:19 Drug: Diazepam PO 5 mg PO once Route: PO; me1 21:32 Follow up: Response: No adverse reaction zm 20:19 Drug: HYDROcodone-acetaminophen PO 5 mg-325 mg 1 tabs PO once Route: PO; me1 21:31 Follow up: Response: No adverse reaction Medication: 20:26 VIS not applicable for this client. bm8 Outcome: 21:16 Discharge ordered by . ms3 21:29 Discharged to home ambulatory, with family, 21:29 Condition: stable 21:29 Discharge instructions given to patient, Instructed on discharge instructions, follow up and referral plans. no drinking with medication, no driving heavy equipment, medication usage, safety practices, Demonstrated understanding of instructions, follow-up care, medications, Prescriptions given X 1, 21:35 Patient left the ED. travis Signatures: Dispatcher [employer] EDMS Umberto Hickman DO DO ms3 Michelle Díaz jj6 Livier French RN RN zm Khloe Dumont RN RN me1 Keon Lopez RN RN bm8
--- NOTE | 2025-01-02 21:17 | EDPHYS ---
Physician Documentation [facility] Name: George Morales Jr Age: 44 yrs Sex: Male : 1980 Arrival Date: 01/02/2025 Time: 19:49 Bed 20 Private MD: ED Physician Umberto Hickman HPI: 01/02 21:16 This 44 yrs old Male presents to ER via Ambulatory with complaints of Back Injury, Back ms3 Pain. 21:16 44-year-old male with no past medical history presents to the emergency department for ms3 low back pain. Patient states he was in an attic at work on Sunday and twisted wrong causing his back to began hurting. Patient states he has previously had back pain but it typically does not last as long as this episode. Patient states his symptoms are better when laying down. He rates the discomfort an 8/10 when laying down and a 10/10 when standing. Patient denies urinary or bowel incontinence, saddle anesthesia, lower extremity weakness.. Historical: - Allergies: 20:15 No Known Allergies; me1 - PMHx: 20:15 None; me1 - PSHx: 20:15 neck surgery; leg surgery; me1 - Immunization history:: Adult Immunizations up to date. - Infectious Disease History:: Denies. - Social history:: Smoking status: Patient denies any tobacco usage or history of. ROS: 21:16 Constitutional: Negative for fever, and chills. Cardiovascular: Negative for chest ms3 pain, and palpitations. Respiratory: Negative for shortness of breath, cough, wheezing, and pleuritic chest pain, Abdomen/GI: Negative for abdominal pain, nausea, vomiting, diarrhea, and constipation, MS/Extremity: Negative for injury and deformity, Skin: Negative for injury, rash, and discoloration, 21:16 Back: Positive for Low back pain, Exam: 21:16 Constitutional: This is a well developed, well nourished patient who is awake, alert, ms3 and in no acute distress. Cardiovascular: Regular rate and rhythm with a normal S1 and S2. No gallops, murmurs, or rubs. Normal PMI, no JVD. No pulse deficits. Respiratory: Lungs have equal breath sounds bilaterally, clear to auscultation and percussion. No rales, rhonchi or wheezes noted. No increased work of breathing, no retractions or nasal flaring. Abdomen/GI: Soft, non-tender, with normal bowel sounds. No distension or tympany. No guarding or rebound. No evidence of tenderness throughout. 21:16 Skin: Warm, dry with normal turgor. Normal color with no rashes, no lesions, and no evidence of cellulitis. 21:16 Back: pain, that is moderate, muscle spasm, is appreciated in the left low back, Vital Signs: 20:13 BP 124 / 85; Pulse 92; Resp 17; Temp 98.3; Pulse Ox 98% ; Weight 102.06 kg; Height 6 me1 ft. 2 in. ; Pain 8/10; 21:29 BP 126 / 77; Pulse 55; Resp 16; Temp 98.2; Pulse Ox 99% on R/A; Pain 8/10; zm 20:13 Body Mass Index 28.89 (102.06 kg, 187.96 cm) me1 20:13 Pain Scale: Adult me1 21:29 Pain Scale: Adult zm Vonore Coma Score: 20:26 Eye Response: spontaneous(4). Motor Response: obeys commands(6). Verbal Response: bm8 oriented(5). Total: 15. 21:29 Eye Response: spontaneous(4). Motor Response: obeys commands(6). Verbal Response: zm oriented(5). Total: 15. MDM: 20:01 Medical Screening Exam initiated ms3 21:16 Differential diagnosis: Fracture Neoplasm vertebral fracture, Muscle spasm. Data ms3 reviewed: vital signs, nurses notes, radiologic studies, and as a result, I will discharge patient. I considered the following discharge prescriptions or medication management in the emergency department Medications were administered in the Emergency Department. See MAR. Independent interpretation of the following test(s) in the Emergency Department X-Ray: My interpretation is Lumbar x-ray images reviewed by me did not reveal malalignment, lytic lesions, or fracture. Counseling: I had a detailed discussion with the patient and/or guardian regarding the historical points, exam findings, and any diagnostic results supporting the discharge/admit diagnosis, radiology results, the need for outpatient follow up, to return to the emergency department if symptoms worsen or persist or if there are any questions or concerns that arise at home. Special discussion: I discussed with the patient/guardian in detail that at this point there is no indication for admission to the hospital. It is understood, however, that if the symptoms persist or worsen the patient needs to return immediately for re-evaluation. ED course: On reevaluation patient symptoms improved, alert and orient x 4, no apparent distress, nontoxic-appearing, speaking full sentences. Patient to follow-up with primary care physician in 2 to 3 days. All questions were answered. Return precautions discussed include worsening symptoms, numbness, weakness, urinary or bowel incontinence or retention.. 01/02 20:10 Order name: Lumbar Spine (3 Views) XRAY; Complete Time: 21:01 ms3 Administered Medications: 20:19 Drug: Diazepam PO 5 mg PO once Route: PO; me1 21:32 Follow up: Response: No adverse reaction 20:19 Drug: HYDROcodone-acetaminophen PO 5 mg-325 mg 1 tabs PO once Route: PO; me1 21:31 Follow up: Response: No adverse reaction zm Disposition Summary: 01/02/25 21:16 Discharge Ordered Notes: Location: Home ms3 Condition: Stable ms3 Diagnosis - Low back pain ms3 Followup: ms3 - With: Ole Arriaza DO - When: 2 - 3 days - Reason: Recheck today's complaints Discharge Instructions: - Discharge Summary Sheet ms3 - Acute Back Pain, Adult ms3 - and Returning to Work bm8 Forms: - Medication Reconciliation Form ms3 - Antibiotic Education ms3 - Prescription Opioid Use ms3 - Patient Portal Instructions ms3 - Leadership Thank You Letter ms3 - Work release form bm8 Prescriptions: - Ibuprofen 600 mg Oral Tablet - take 1 tablet ORAL route every 6 hours As needed take with food; 30 tablet; ms3 Refills: 0, Product Selection Permitted - Cyclobenzaprine 10 mg Oral Tablet - take 1 tablet ORAL route every 8 hours As needed; 30 tablet; Refills: 0, ms3 Product Selection Permitted Signatures: Dispatcher [employer] Umberto Mukherjee DO DO ms3 Khloe Dumont RN RN Livier Gaitan RN Corrections: (The following items were deleted from the chart) 01/03 00:12 00:09 44-year-old male with no past medical history presents to the emergency ms3 department. ms3 00:12 00:09 This 44 yrs old Male presents to ER via Ambulatory with complaints of Back ms3 Injury, Back Pain. ms3 00:15 0815 21:16 44-year-old male with no past medical history presents to the emergency ms3 department for low back pain. Patient states he was in an attic at work on Sunday and twisted wrong causing his back to began hurting. Patient states he has previously had back pain but it typically does not last as long as this episode. Patient states his symptoms are better when laying down. He rates the discomfort an 8/10 when laying down and a 10/10 when standing.. ms3
[2025-01-03 02:00] VITALS: BP 126/77; TEMP 98.2; O2SAT 99
== END 2025-01-02 21:35 | disposition home or self-care (01) ==
LOC: ER 19:49
DX: M54.50 Low back pain, unspecified (principal)
CPT/HCPCS: 72100; 99284